=== PATIENT | male | born 1940 | race Caucasian/White ===

== ENCOUNTER 2017-03-19 10:12 | Observation (INO) ==
[2017-03-19 10:45] LABS: Basophils % 0.3 %; Eosinophils % 0.4 %; Hematocrit 33.4 % (37.5-50.1); Hemoglobin 10.5 g/dL (12.9-16.9); Immature Granulocytes % 0.8 % (0-4); Lymphocytes # 0.6 K/mcL (0.6-4.6); Lymphocytes % 8.2 %; Mean Corpuscular HGB Conc 31.4 g/dL (31.6-35.5); Mean Corpuscular Hemoglobin 24.9 pg (28.0-33.3); Mean Corpuscular Volume 79.1 fL (83.0-100.0); Mean Platelet Volume 8.3 fL (9.4-12.4); Monocytes # 0.5 K/mcL (0.0-1.3); Monocytes % 6.5 %; Neutrophils # 6.2 K/mcL (1.6-8.9); Platelet Count 451 K/mcL (140-400); Red Blood Count 4.22 M/mcL (4.19-5.50); Red Cell Distribution Width 19.2 % (11.5-14.5); Segmented Neutrophils % 83.8 %
[2017-03-19 10:58] LABS: INR 1.4; Prothrombin Time 14.9 Seconds (9.4-12.1)
[2017-03-19 11:00] LABS: Alanine Aminotransferase 112 Units/L (0-55); Albumin 2.3 g/dL (3.5-5.0); Albumin/Globulin Ratio 0.5 (1.1-2.2); Alkaline Phosphatase 88 Units/L (38-126); Aspartate Amino Transferase 64 Units/L (5-34); BUN/Creatinine Ratio 23 (6-26); Bilirubin,Total 0.8 mg/dL (0.2-1.2); Blood Urea Nitrogen 20 mg/dL (8-26); Calcium 9.5 mg/dL (8.6-10.8); Carbon Dioxide 23 mEq/L (19-29); Chloride 100 mEq/L (98-109); Globulin 4.8 g/dL (2.4-3.5); Glucose 134 mg/dL (70-99); Osmolality,Calculated 287 (280-300); Sodium 136 mEq/L (136-145); Total Protein 7.1 g/dL (6.0-8.3); eGFR For African Americans > 60 (> 60); eGFR For Non-African Americans > 60 (> 60)
--- NOTE | 2017-03-19 11:00 | Emergency Department Note ---
Disposition Clinical Impression: Near syncope Left lower lobe pneumonia Qualifiers: Pneumonia type: due to unspecified organism Qualified Code(s): J18.1 - Lobar pneumonia, unspecified organism Disposition: Admitted As Inpatient Condition: Fair Referrals: Yael ePrry MD [Primary Care Provider] - Forms: ED Satisfaction Letter Time of Disposition: 11:25 General Adult HPI - General Chief complaint: ED Syncope Stated complaint: medical assist/syncope Time Seen by Provider: 03/19/17 10:27 Source: patient, family Mode of arrival: wheelchair Limitations: no limitations Nursing Notes Reviewed: Yes Vital Signs Reviewed: Yes - History of Present Illness HPI Narrative: 76-year-old male is brought to the emergency department after a medical staff director was called to the outpatient radiology waiting room. According to family and bystanders, the patient was noticed to have just slumped over in his chair and became nearly unresponsive. The patient and family members deny any actual loss of consciousness. Shortly after this happened, the patient did begin to vomit. He was here for a lung biopsy for a left lung mass that he is followed by our application support developer, Dr. Uribe for. He states that he felt fine this morning prior to his arrival here other than some baseline shortness of breath. Sates that he has that with this since November of this year. He does describe a cough that is productive of scant amounts of white sputum. He denies any chest pain, fever, hemoptysis, headache, visual disturbances, abdominal pain, hematuria, hematemesis, melena, or hematochezia. Onset (ago): Just [employer] Pain Scale: 0 Associated symptoms: Reports: cough, nausea/vomiting, shortness of breath Treatments Prior to Arrival: none - Related Data Home Medications Medication Instructions Recorded Confirmed Aspirin 81 mg PO DAILY 12/31/16 03/19/17 Atorvastatin Calcium 80 mg PO DAILY 12/31/16 03/19/17 amLODIPine [Norvasc] 5 mg PO DAILY 12/31/16 03/19/17 Albuterol Sulfate [Albuterol 2 puff IH Q4H PRN 02/04/17 03/19/17 Inhaler] Budesonide/Formoterol 160/4.5 2 puff IH BIDR 03/19/17 03/19/17 [Symbicort 160/4.5] Diltiazem CD (24hr) [Cardizem CD] 120 mg PO DAILY 03/19/17 03/19/17 LORazepam [Ativan] 0.5 mg PO BID 03/19/17 03/19/17 Allergies Allergy/AdvReac Type Severity Reaction Status Date / Time No Known Allergies Allergy Verified 03/19/17 11:34 All systems ED: reviewed and negative except as stated. Constitutional: Denies: fever, chills, weakness, weight change Eyes: Denies: eye pain, eye discharge, vision change ENT ED: Denies: ear pain, throat pain, dental pain, hearing loss, epistaxis, congestion, dysphagia Cardiovascular: Reports: as per HPI, dyspnea on exertion. Denies: chest pain, palpitations, edema, syncope Respiratory: Reports: as per HPI, cough, dyspnea. Denies: wheezes, hemoptysis, stridor Gastrointestinal: Denies: abdominal pain, nausea, vomiting, diarrhea, constipation, hematemesis, melena, hematochezia Genitourinary: Denies: urgency, dysuria, frequency, hematuria Musculoskeletal: Denies: back pain, neck pain, arthralgia, myalgia Integumentary: Denies: rash, abrasion, lesions Neurological: Denies: headache, weakness, numbness, paresthesias, confusion, abnormal gait, vertigo Psychiatric: Denies: anxiety, depression, suicidal thoughts, homicidal thoughts , auditory hallucinations, visual hallucinations Endocrine: Denies: fatigue Hematological/Lymphatic: Denies: easy bleeding, easy bruising Allergic/Immunologic: Denies: facial swelling, urticaria Past Medical History - Past Medical History Attestation: Yes The following information was validated with the patient. Source: patient, nursing notes reviewed Medical history: Reports: other Psychiatric history: Reports: no psych history - Social History Smoking Status: Unknown if ever smoked Alcohol use: Reports: none Drug use: Reports: none Physical Exam - General Limitations: no limitations General appearance: alert - Head Head exam: atraumatic, normocephalic, normal inspection - Eye Eye exam: Present: normal appearance, PERRL, EOMI. Absent: nystagmus - Expanded Eye Exam Pupils: Bilateral: regular, round, reactive, size (3) - ENT ENT exam: mucous membranes moist - Neck Neck exam: Present: normal inspection, full ROM, trachea midline - Chest Chest inspection: Present: normal inspection, symmetric chest wall rise - Respiratory Respiratory exam: Present: normal lung sounds bilaterally. Absent: respiratory distress, stridor, accessory muscle use, prolonged expiratory phase - Cardiovascular Cardiovascular exam: Present: regular rate, normal rhythm, normal heart sounds - Abdominal Exam Abdominal exam: Present: soft, Non-Tender, normal bowel sounds - Extremities Exam Extremities exam: Present: normal inspection, full ROM. Absent: tenderness, pedal edema - Back Exam Back exam: Present: normal inspection, full ROM. Absent: tenderness - Neurological Exam Neurological exam: Present: alert, oriented X3 - Psychiatric Psychiatric exam: Present: normal affect, normal mood - Skin Skin exam: Present: warm, dry, intact, normal color Course Course Narrative: I have discussed this patient's case with Dr. Winters. Dr. Winters has had a face- to-face evaluation with the patient and agrees with hospitalization for further treatment of his left lower lobe pneumonia. The patient denies any recent hospitalizations. We will treat as a community-acquired pneumonia. Cultures have been ordered, fluid resuscitation at 30 mL/kg has been ordered. Time to repeat lactic acid is also pending. 1155: With Dr. Hand of the hospitalist service. He has accepted patient for admission to his service for further treatment of community acquired pneumonia. Vital Signs Temperature 97.7 F 03/19/17 10:13 Pulse Rate 93 03/19/17 10:13 Respiratory Rate 15 03/19/17 10:13 Blood Pressure 102/84 03/19/17 10:13 O2 Sat by Pulse Oximetry 96 03/19/17 10:13 Temperature 97.7 F 03/19/17 10:13 Pulse Rate 78 03/19/17 11:46 Respiratory Rate 24 03/19/17 11:46 Blood Pressure 105/64 03/19/17 11:46 O2 Sat by Pulse Oximetry 98 03/19/17 11:46 Oxygen Delivery Oxygen Delivery Room Air Medical Decision Making - Medical Records Medical records reviewed: Yes I reviewed the patient's medical records. - Lab Data Lab results reviewed: Yes I reviewed the patient's lab results. Lab results narrative: Laboratory Last Values WBC 7.4 K/mcL (4.3-11.1) 03/19/17 10:35 RBC 4.22 M/mcL (4.19-5.50) 03/19/17 10:35 Hgb 10.5 g/dL (12.9-16.9) L 03/19/17 10:35 Hct 33.4 % (37.5-50.1) L 03/19/17 10:35 MCV 79.1 fL (83.0-100.0) L 03/19/17 10:35 MCH 24.9 pg (28.0-33.3) L 03/19/17 10:35 MCHC 31.4 g/dL (31.6-35.5) L 03/19/17 10:35 RDW 19.2 % (11.5-14.5) H 03/19/17 10:35 Plt Count 451 K/mcL (140-400) H 03/19/17 10:35 MPV 8.3 fL (9.4-12.4) L 03/19/17 10:35 Immature Gran % 0.8 % (0-4) 03/19/17 10:35 Seg Neutrophils % 83.8 % 03/19/17 10:35 Lymphocytes % 8.2 % 03/19/17 10:35 Monocytes % 6.5 % 03/19/17 10:35 Eosinophils % 0.4 % 03/19/17 10:35 Basophils % 0.3 % 03/19/17 10:35 Neutrophils # 6.2 K/mcL (1.6-8.9) 03/19/17 10:35 Lymphocytes # 0.6 K/mcL (0.6-4.6) 03/19/17 10:35 Monocytes # 0.5 K/mcL (0.0-1.3) 03/19/17 10:35 Eosinophils # 0.0 K/mcL (0.0-0.6) 03/19/17 10:35 Basophils # 0.0 K/mcL (0.0-0.2) 03/19/17 10:35 PT 14.9 Seconds (9.4-12.1) H 03/19/17 10:35 INR 1.4 03/19/17 10:35 APTT 28.2 Seconds (26.0-36.0) 03/19/17 10:35 Sodium 136 mEq/L (136-145) 03/19/17 10:35 Potassium 4.0 mEq/L (3.5-4.5) 03/19/17 10:35 Chloride 100 mEq/L (98-109) 03/19/17 10:35 Carbon Dioxide 23 mEq/L (19-29) 03/19/17 10:35 BUN 20 mg/dL (8-26) 03/19/17 10:35 Creatinine 0.87 mg/dL (0.72-1.25) 03/19/17 10:35 Est GFR ( Amer) > 60 (> 60) 03/19/17 10:35 Est GFR (Non-Af Amer) > 60 (> 60) 03/19/17 10:35 BUN/Creatinine Ratio 23 (6-26) 03/19/17 10:35 Glucose 134 mg/dL (70-99) H 03/19/17 10:35 POC Glucose 124 (58-89) H 03/19/17 10:56 Calculated Osmolality 287 (280-300) 03/19/17 10:35 Lactic Acid 2.8 mmol/L (0.5-2.2) H 03/19/17 10:46 Calcium 9.5 mg/dL (8.6-10.8) 03/19/17 10:35 Total Bilirubin 0.8 mg/dL (0.2-1.2) 03/19/17 10:35 AST 64 Units/L (5-34) H 03/19/17 10:35 ALT 112 Units/L (0-55) H 03/19/17 10:35 Alkaline Phosphatase 88 Units/L (38-126) 03/19/17 10:35 Ammonia 14 mcmol/L (18-72) L 03/19/17 10:46 Troponin I 0.00 ng/mL (0-0.03) 03/19/17 10:35 Serum Total Protein 7.1 g/dL (6.0-8.3) 03/19/17 10:35 Albumin 2.3 g/dL (3.5-5.0) L 03/19/17 10:35 Globulin 4.8 g/dL (2.4-3.5) H 03/19/17 10:35 Albumin/Globulin Ratio 0.5 (1.1-2.2) L 03/19/17 10:35 Result diagrams: 03/19/17 10:35 03/19/17 10:35 Lab Results 03/19/17 03/19/17 03/19/17 Range/Units 10:35 10:35 10:35 WBC 7.4 (4.3-11.1) K/mcL RBC 4.22 (4.19-5.50) M/mcL Hgb 10.5 L (12.9-16.9) g/dL Hct 33.4 L (37.5-50.1) % MCV 79.1 L (83.0-100.0) fL MCH 24.9 L (28.0-33.3) pg MCHC 31.4 L (31.6-35.5) g/dL RDW 19.2 H (11.5-14.5) % Plt Count 451 H (140-400) K/mcL MPV 8.3 L (9.4-12.4) fL Immature Gran % 0.8 (0-4) % Seg Neutrophils % 83.8 % Lymphocytes % 8.2 % Monocytes % 6.5 % Eosinophils % 0.4 % Basophils % 0.3 % Neutrophils # 6.2 (1.6-8.9) K/mcL Lymphocytes # 0.6 (0.6-4.6) K/mcL Monocytes # 0.5 (0.0-1.3) K/mcL Eosinophils # 0.0 (0.0-0.6) K/mcL Basophils # 0.0 (0.0-0.2) K/mcL PT 14.9 H (9.4-12.1) Seconds INR 1.4 APTT 28.2 (26.0-36.0) Seconds Sodium 136 (136-145) mEq/L Potassium 4.0 (3.5-4.5) mEq/L Chloride 100 (98-109) mEq/L Carbon Dioxide 23 (19-29) mEq/L BUN 20 (8-26) mg/dL Creatinine 0.87 (0.72-1.25) mg/dL Est GFR ( Amer) > 60 (> 60) Est GFR (Non-Af Amer) > 60 (> 60) BUN/Creatinine Ratio 23 (6-26) Glucose 134 H (70-99) mg/dL POC Glucose (58-89) Calculated Osmolality 287 (280-300) Lactic Acid (0.5-2.2) mmol/L Calcium 9.5 (8.6-10.8) mg/dL Total Bilirubin 0.8 (0.2-1.2) mg/dL AST 64 H (5-34) Units/L ALT 112 H (0-55) Units/L Alkaline Phosphatase 88 (38-126) Units/L Ammonia (18-72) mcmol/L Troponin I (0-0.03) ng/mL Serum Total Protein 7.1 (6.0-8.3) g/dL Albumin 2.3 L (3.5-5.0) g/dL Globulin 4.8 H (2.4-3.5) g/dL Albumin/Globulin Ratio 0.5 L (1.1-2.2) Blood Type 03/19/17 03/19/17 03/19/17 Range/Units 10:35 10:46 10:46 WBC (4.3-11.1) K/mcL RBC (4.19-5.50) M/mcL Hgb (12.9-16.9) g/dL Hct (37.5-50.1) % MCV (83.0-100.0) fL MCH (28.0-33.3) pg MCHC (31.6-35.5) g/dL RDW (11.5-14.5) % Plt Count (140-400) K/mcL MPV (9.4-12.4) fL Immature Gran % (0-4) % Seg Neutrophils % % Lymphocytes % % Monocytes % % Eosinophils % % Basophils % % Neutrophils # (1.6-8.9) K/mcL Lymphocytes # (0.6-4.6) K/mcL Monocytes # (0.0-1.3) K/mcL Eosinophils # (0.0-0.6) K/mcL Basophils # (0.0-0.2) K/mcL PT (9.4-12.1) Seconds INR APTT (26.0-36.0) Seconds Sodium (136-145) mEq/L Potassium (3.5-4.5) mEq/L Chloride (98-109) mEq/L Carbon Dioxide (19-29) mEq/L BUN (8-26) mg/dL Creatinine (0.72-1.25) mg/dL Est GFR ( Amer) (> 60) Est GFR (Non-Af Amer) (> 60) BUN/Creatinine Ratio (6-26) Glucose (70-99) mg/dL POC Glucose (58-89) Calculated Osmolality (280-300) Lactic Acid 2.8 H (0.5-2.2) mmol/L Calcium (8.6-10.8) mg/dL Total Bilirubin (0.2-1.2) mg/dL AST (5-34) Units/L ALT (0-55) Units/L Alkaline Phosphatase (38-126) Units/L Ammonia (18-72) mcmol/L Troponin I 0.00 (0-0.03) ng/mL Serum Total Protein (6.0-8.3) g/dL Albumin (3.5-5.0) g/dL Globulin (2.4-3.5) g/dL Albumin/Globulin Ratio (1.1-2.2) Blood Type B POSITIVE 03/19/17 03/19/17 Range/Units 10:46 10:56 WBC (4.3-11.1) K/mcL RBC (4.19-5.50) M/mcL Hgb (12.9-16.9) g/dL Hct (37.5-50.1) % MCV (83.0-100.0) fL MCH (28.0-33.3) pg MCHC (31.6-35.5) g/dL RDW (11.5-14.5) % Plt Count (140-400) K/mcL MPV (9.4-12.4) fL Immature Gran % (0-4) % Seg Neutrophils % % Lymphocytes % % Monocytes % % Eosinophils % % Basophils % % Neutrophils # (1.6-8.9) K/mcL Lymphocytes # (0.6-4.6) K/mcL Monocytes # (0.0-1.3) K/mcL Eosinophils # (0.0-0.6) K/mcL Basophils # (0.0-0.2) K/mcL PT (9.4-12.1) Seconds INR APTT (26.0-36.0) Seconds Sodium (136-145) mEq/L Potassium (3.5-4.5) mEq/L Chloride (98-109) mEq/L Carbon Dioxide (19-29) mEq/L BUN (8-26) mg/dL Creatinine (0.72-1.25) mg/dL Est GFR ( Amer) (> 60) Est GFR (Non-Af Amer) (> 60) BUN/Creatinine Ratio (6-26) Glucose (70-99) mg/dL POC Glucose 124 H (58-89) Calculated Osmolality (280-300) Lactic Acid (0.5-2.2) mmol/L Calcium (8.6-10.8) mg/dL Total Bilirubin (0.2-1.2) mg/dL AST (5-34) Units/L ALT (0-55) Units/L Alkaline Phosphatase (38-126) Units/L Ammonia 14 L (18-72) mcmol/L Troponin I (0-0.03) ng/mL Serum Total Protein (6.0-8.3) g/dL Albumin (3.5-5.0) g/dL Globulin (2.4-3.5) g/dL Albumin/Globulin Ratio (1.1-2.2) Blood Type - Radiology Data Radiology results reviewed: Yes I reviewed the patient's radiology results. Chest X-Ray 03/19/17 10:27 IMPRESSION: Stable left parahilar opacification compatible with known mass. There is possible retrocardiac new left lower lobe airspace disease. D/ / 03/19/2017 11:04:06 Davide Strange MD / manuel Interpreting Provider: Davide Strange MD
[2017-03-19 11:01] LABS: Activated Partial Thrombo Time 28.2 Seconds (26.0-36.0)
[2017-03-19] MEDS ORDERED: Azithromycin 500 MG in D5% in Water 250 ML IVPB ONE (11:24)
--- NOTE | 2017-03-19 11:27 | Emergency Department Note ---
START Narrative - START START: I examined this patient and my medical decision-making was reviewed with the Resident Physician. I agree with the documented findings, disposition and treatment plan as described except to the extent set forth below. 76-year-old male presented to the ER with a syncopal type resuscitation. Patient has known lung mass involving the left lung. Patient was in the outpatient interventional radiology area to get a procedure done which was a biopsy of this mass. He became unresponsive and slumped over in the chair. He had some vomiting associated with this. Workup here reveals a new left lower lobe infiltrate consistent with pneumonia. Lab work is stable. We will start him on Rocephin and Zithromax. Patient will need to be admitted for further cardiac workup as well. ekg shows paced rhythm blood cultures ordered iv fluids timed lactate no critical care time
[2017-03-19] MEDS: 0.9 % Sodium Chloride 1,000 ML IVC SCH ×2 (11:36→20:33)
[2017-03-19] MEDS ORDERED: cefTRIAXone 1,000 MG in Water for inj. (sterile) 10 ML IVP ONE (11:50)
[2017-03-19] MEDS ORDERED: Ondansetron 4 MG/2 ML VIAL IVP ONE (12:30)
[2017-03-19 14:12] LABS: Bilirubin,Urine Negative (Negative); Blood,Urine Negative (Negative); Clarity,Urine Clear (Clear); Color,Urine Yellow (Yellow); Glucose,Urine (UA) Normal (Normal); Ketones,Urine Trace mg/dL (Negative); Leukocyte Esterase,Urine Negative (Negative); Nitrite,Urine Negative (Negative); PH,Urine 7.5 pH Units (5.0-8.0); Protein,Urine 30 mg/dL (Neg-Trace); Urobilinogen,Urine Normal (Normal)
[2017-03-19 14:14] LABS: Bacteria,Urine None Seen per hpf (None-Few); Hyaline Casts,Urine None Seen per lpf (None-Few); RBC,Urine 0-3 per hpf (0-3); Squamous Epithelial Cell,Urine Many per lpf (None-Few); WBC,Urine 0-3 per hpf (0-3)
[2017-03-19] MEDS ORDERED: Naloxone 0.4 MG/ML INJ IVP PRN (15:06)
--- NOTE | 2017-03-19 15:25 | Internal Med History&Physical ---
<Ramakrishna Brewer J - Last Filed: 03/19/17 18:46> Date of Encounter: 03/19/17 Time of Encounter: 15:17 Assessment and Plan (1) Left lower lobe pneumonia Current visit: Yes Status: Acute Left lower lobe pneumonia per chest x-ray. The patient has had no recent hospitalizations. This is likely a community acquired pneumonia. He appears stable and is in no respiratory distress at this time. He is resting comfortably on room air. He does not appear septic however initially lactate was 2.8 Start azithromycin 500 mg daily Start ceftriaxone 1 g daily Blood cultures sent Recheck lactate Continuous telemetry and continuous O2 monitoring CBC and BMP in the morning Qualifiers: Pneumonia type: due to unspecified organism Qualified Code(s): J18.1 - Lobar pneumonia, unspecified organism (2) Near syncope Current visit: Yes Status: Acute Near-syncopal event this afternoon in outpatient radiology for biopsy of lung mass. Reports that he has a history of syncope requiring pacer placement. Has not had a syncopal event in quite some time. Has not had a recent cardiac workup. Orthostatic vitals MRI head/brain without contrast TTE Bilateral carotid ultrasound Continuous telemetry, continues O2 monitoring (3) Nausea & vomiting Current visit: Yes Status: Acute A brief episode of vomiting is afternoon. Reports he is no longer nauseous. Zofran IV push every 8 hours when necessary for n/v Qualifiers: Vomiting type: unspecified Vomiting Intractability: unspecified Qualified Code(s): R11.2 - Nausea with vomiting, unspecified (4) HLD (hyperlipidemia) Current visit: Yes Status: Acute Resume statin Qualifiers: Hyperlipidemia type: unspecified Qualified Code(s): E78.5 - Hyperlipidemia , unspecified; E78.0 - Pure hypercholesterolemia (5) Emphysema Current visit: Yes Status: Acute Stable. Resume albuterol and Symbicort Qualifiers: Qualified Code(s): J43.9 - Emphysema, unspecified (6) DVT prophylaxis Current visit: Yes Status: Acute Heparin 5000 units SC daily Internal Medicine - H&P: HPI Chief complaint: PNA, Near syncope Admitted From: Home Plans for Post Hospital Care: Home History of present illness: Mr. Maravilla is a 76 year old male with a PMH of lymphoma, emphysema, HTN, HLD, syncope requiring a pacer, and a lung mass suspicious for cancer. He presents today to [facility] for a near syncopal event while in the radiology office today for Lt lung mass biopsy. He family and staff noticed that he was slumped over in his chair and difficult to arouse. While attempting to arouse the patient he began vomiting. He reports that he felt fine prior to arrival. He denies any fevers, diarrhea, excess fatigue, dizziness, palpitations, chest pain H/a, abdominal pain, dysuria, hematemesis or hematochezia. He admits to a chronic cough to which he has had since 12/05 with scant white sputum and baseline SOB. CXR reveals a LLL PNA. He is being admitted for further workup and treatment. Past Med Surg Social Fam HX - Past Medical History Medical history: other Psychiatric history: no psych history - Social History Smoking Status: Former smoker Smokeless Tobacco Status: No Alcohol use: none Drug use: none - Family History Sister Race: Family Member Ethnicity: Non- Living Status: Still Living Hx Family Cancer: Yes (unknown) Mother Hx Family Endocrine Disorder: Yes (DM) Brother Living Status: Age at : 27 Cause of : LUNG CANCER Hx Family Cancer: Yes Father Living Status: Hx Family Cancer: Yes Internal Medicine - H&P: Meds Aspirin 81 mg PO DAILY 12/31/16 [History] Atorvastatin Calcium 80 mg PO DAILY 12/31/16 [History] amLODIPine [Norvasc] 5 mg PO DAILY 12/31/16 [History] Albuterol Sulfate [Albuterol Inhaler] 2 puff IH Q4H PRN 02/04/17 [History] Budesonide/Formoterol 160/4.5 [Symbicort 160/4.5] 2 puff IH BIDR 03/19/17 [ History] Diltiazem CD (24hr) [Cardizem CD] 120 mg PO DAILY 03/19/17 [History] LORazepam [Ativan] 0.5 mg PO BID 03/19/17 [History] 3 Allergy/AdvReac Type Severity Reaction Status Date / Time No Known Allergies Allergy Verified 03/19/17 11:34 All Systems PM: A 10-system review of systems was performed and is negative for pertinent findings except as documented above in the HPI. - Constitutional Constitutional: anorexia, chills, night sweats, weight loss, no fatigue, no fever(s) - EENT Eyes: no change in vision, no discharge, no pain, no photophobia Ears: no ear discharge, no ear pain, no tinnitus Nose, mouth and throat: no dysphagia, no nasal discharge, no neck pain, no sore throat - Cardiovascular Cardiovascular ROS IM: dyspnea on exertion (baseline), syncope (near syncopal event today; h/o syncope requiring pacer), no chest pain, no diaphoresis, no dyspnea, no edema, no lightheadedness, no palpitations - Respiratory Respiratory: cough (chronic), dyspnea on exertion, no dyspnea, no hemoptysis, no wheezing, no pain on inspiration, no chest congestion, no excessive phlegm production, no change in phlegm color, no pain with cough - Gastrointestinal Gastrointestinal: nausea (N/V this afternoon; has subsided since), vomiting, no abdominal pain, no diarrhea, no hematemesis, no hematochezia, no melena - Genitourinary Genitourinary ROS male: no dysuria, no flank pain, no urinary frequency, no urinary urgency - Musculoskeletal Musculoskeletal ROS IM: no numbness, no tingling - Integumentary Integumentary IM: no rash, no unusual bruising - Neurological Neurological ROS: no confusion, no convulsions, no dizziness, no focal weakness , no headache(s), no numbness, no tingling, no tremor(s) - Hematologic/Lymphatic Hematologic/Lymphatic: no easy bruising - Constitutional Vitals: Temp Pulse Resp BP Pulse Ox 97.4 F L 81 14 117/76 91 03/19/17 14:12 03/19/17 14:12 03/19/17 14:12 03/19/17 14:12 03/19/17 14:12 - Head Head exam: Present: atraumatic, normocephalic - Eye Eye exam: Present: PERRL, conjuntiva pink, sclera anicteric Pupils: Present: PERRL - Neck Neck exam general surgery: Present: supple, trachea midline. Absent: lymphadenopathy - Respiratory Respiratory exam: Present: CTAB. Absent: accessory muscle use, rales, rhonchi, wheezes - Cardiovascular Cardiovascular exam: Present: RRR, +S1, +S2. Absent: bradycardia, diastolic murmur, gallop, irregular rhythm, JVD, rubs, systolic murmur, tachycardia - GI/Abdominal GI/Abdominal exam: Present: normal bowel sounds, soft, no peritoneal signs. Absent: distended, tenderness - Extremities Exam Extremities exam: Present: normal capillary refill, warm, radial pulses palpable and symmetrical. Absent: calf tenderness, cyanotic, pedal edema - Neurological Exam Neurological exam: Present: alert, CN II-XII intact, oriented X3, no focal deficits, strengths equal and symetr throughout. Absent: pronater drift, facial droop, speech deficit - Skin Skin exam: Present: dry, intact Internal Med - H&P Results - Labs CBC & Chem 7: 03/19/17 10:35 03/19/17 10:35 Labs: Urine 03/19/17 Range/Units 13:53 Urine Color Yellow (Yellow) Urine Clarity Clear (Clear) Urine pH 7.5 (5.0-8.0) pH Units Ur Specific [place] 1.020 (1.010-1.025) Urine Protein 30 H (Neg-Trace) mg/dL Urine Glucose (UA) Normal (Normal) mg/dL - Diagnostic Studies Chest x-ray Status: image reviewed by me Additional comments: Stable left perihilar opacification compatible with known mass New left lower lobe airspace disease likely representing pneumonia CT scan - head Status: image reviewed by me Additional comments: No acute intracranial abnormalities <Randolph Hand - Last Filed: 03/20/17 15:52> Date of Encounter: 03/20/17 Internal Medicine - H&P: HPI History of present illness: Mr. Maravilla is a 76 year old male All Systems PM: A 10-system review of systems was performed and is negative for pertinent findings except as documented above in the HPI. - Constitutional Vitals: Temp Pulse Resp BP Pulse Ox 98.0 F 87 14 107/61 96 03/20/17 10:19 03/20/17 10:19 03/20/17 10:19 03/20/17 10:19 03/20/17 10:19 Internal Med - H&P Results - Labs CBC & Chem 7: 03/20/17 05:41 03/20/17 05:41 Labs: Short CBC 03/20/17 Range/Units 05:41 WBC 6.1 (4.3-11.1) K/mcL Hgb 8.6 L D (12.9-16.9) g/dL Hct 28.7 L (37.5-50.1) % Plt Count 386 (140-400) K/mcL Neutrophils # 5.2 (1.6-8.9) K/mcL BMP 03/20/17 05:41 Sodium 137 Potassium 4.2 Chloride 104 Carbon Dioxide 24 BUN 13 Creatinine 0.77 Glucose 101 H Calcium 8.3 L Cardiac Enzymes 03/19/17 03/19/17 Range/Units 15:54 22:02 Troponin I 0.00 0.00 (0-0.03) ng/mL - Impressions ITS Impressions Chest CT 03/20/17 10:30 IMPRESSION: Extensive bulky mediastinal and bilateral hilar lymphadenopathy measuring up to 4.5 cm in size. Differential includes metastatic lymphadenopathy given the large appearance and narrowing of the bronchi centrally. Enlarging consolidative mass in the left lower lobe now measuring 6.4 x 4.8 cm previously measuring 5.3 x 4.2 cm in size. Worsening left lower lobe airspace consolidation. Differential includes a left lower lobe pneumonia and/or a primary bronchogenic left lower lobe malignancy with secondary postobstructive pneumonia. New ground-glass nodules in the subpleural region of the right lower lobe measuring 9 to 10 mm in size suggesting multifocal pneumonia development. Moderate left and small right pleural effusions new since the prior exam. No pulmonary edema. Upper abdominal lymphadenopathy in the gastrohepatic and central mesenteric region suggesting metastatic lymphadenopathy. Recommend CT scan of the abdomen pelvis with contrast for further evaluation of abdominal/pelvic metastatic disease/lymphadenopathy. Hypoattenuating small foci within the liver likely representing hepatic cysts but given the additional findings, neoplastic disease cannot be completely excluded. Further evaluation with hepatic MRI should be considered. D/ / 03/20/2017 12:14:16 Osbaldo Martinez MD / ida Interpreting Provider: Osbaldo Martinez MD Echocardiogram 03/20/17 15:12 Impressions: LVEF 55%. Normal LV chamber size, wall thickness and function. Atypical septal motion consistent with paced rhythm. Mild left ventricular diastolic dysfunction. Normal right ventricular structure and function. Mild pulmonary hypertension. Estimated RVSP is 40 mmHg. A device lead was visualized in the right atrium and right ventricle. No significant valvular dysfunction. Left Ventricular Wall Motion: Rest Echo Findings All wall segments showed normal motion. Findings: Study Quality * Technically adequate exam. ECG Findings * Paced rhythm. Left Ventricle * LVEF 55%. * Normal LV chamber size, wall thickness and function. * Atypical septal motion consistent with paced rhythm. * Mild left ventricular diastolic dysfunction. Right Ventricle * Normal right ventricular structure and function. Left Atrium * Mildly dilated left atrium. Right Atrium * Mildly dilated right atrium. Interatrial Septum * Interatrial septum not well evaluated. Aortic Valve * Trileaflet aortic valve with normal function. * No aortic regurgitation. * No aortic stenosis. Mitral Valve * Mild mitral annular calcification * No mitral stenosis. * No mitral regurgitation. Tricuspid Valve * Normal tricuspid valve structure and function. * Trace tricuspid regurgitation. * Mild pulmonary hypertension. * Estimated RVSP is 40 mmHg. * Estimated RA pressure is 5 mmHg. Pulmonic Valve * Pulmonic valve is not well visualized. * No pulmonic regurgitation. Aorta * Normally sized aortic root. Pericardium * The pericardium appears normal. IVC * Normal IVC dimensions and inspiratory collapse. Device lead * A device lead was visualized in the right atrium and right ventricle. Pulmonary Artery * Normal visualized portions of the main pulmonary artery. - Attending Attestation I examined this patient and my medical decision-making was reviewed with the Resident Physician/FINANCIAL COACH. I agree with the documented findings, disposition and treatment plan as described except to the extent set forth below. case seen and examined chart reviewed Agree with FINANCIAL COACH Brewer assessment and plan
[2017-03-19] MEDS ORDERED: Ondansetron 4 MG/2 ML VIAL IVP PRN (15:29)
[2017-03-19] MEDS: *HR* Heparin 5,000 UNIT/ML VIAL SQ SCH (17:56)
[2017-03-19] MEDS: Budesonide/Formoterol 160/4.5 MDI IH SCH (20:05)
[2017-03-19] MEDS: *HR* LORazepam 0.5 MG TABLET PO SCH (20:34)
[2017-03-20] MEDS: *HR* Heparin 5,000 UNIT/ML VIAL SQ SCH ×2 (05:41→18:14)
[2017-03-20 06:25] LABS: BUN/Creatinine Ratio 17 (6-26); Blood Urea Nitrogen 13 mg/dL (8-26); Calcium 8.3 mg/dL (8.6-10.8); Carbon Dioxide 24 mEq/L (19-29); Chloride 104 mEq/L (98-109); Glucose 101 mg/dL (70-99); Osmolality,Calculated 284 (280-300); Potassium 4.2 mEq/L (3.5-4.5); Sodium 137 mEq/L (136-145); eGFR For African Americans > 60 (> 60); eGFR For Non-African Americans > 60 (> 60)
[2017-03-20 06:31] LABS: Basophils % 0.3 %; Eosinophils # 0.1 K/mcL (0.0-0.6); Eosinophils % 1.3 %; Hematocrit 28.7 % (37.5-50.1); Lymphocytes # 0.3 K/mcL (0.6-4.6); Lymphocytes % 4.7 %; Mean Corpuscular Hemoglobin 24.5 pg (28.0-33.3); Mean Corpuscular Volume 81.8 fL (83.0-100.0); Mean Platelet Volume 8.6 fL (9.4-12.4); Monocytes # 0.5 K/mcL (0.0-1.3); Monocytes % 7.5 %; Neutrophils # 5.2 K/mcL (1.6-8.9); Platelet Count 386 K/mcL (140-400); Red Blood Count 3.51 M/mcL (4.19-5.50); Red Cell Distribution Width 19.3 % (11.5-14.5); Segmented Neutrophils % 85.2 %
[2017-03-20 06:34] LABS: Hemoglobin 8.6 g/dL (12.9-16.9)
--- NOTE | 2017-03-20 07:16 | Electrocardiograph Report ---
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
[2017-03-20] MEDS: Budesonide/Formoterol 160/4.5 MDI IH SCH ×2 (08:05→20:16)
[2017-03-20] MEDS ORDERED: amLODIPine 5 MG TABLET PO SCH (09:00)
[2017-03-20] MEDS ORDERED: Diltiazem CD (24hr) 120 MG CAPSULE PO SCH (09:00)
--- NOTE | 2017-03-20 09:35 | Internal Med Progress Note ---
Date of Encounter: 03/20/17 Time of Encounter: 09:33 - Assessment and plan (1) Lung mass Current Visit: Yes Status: Acute Assessment and plan: will reconsult Ir for biopsy notified (2) Left lower lobe pneumonia Current Visit: Yes Status: Acute Assessment and plan: Community acquired pneumonia patient started on antibiotic Rocephin and Zithromax Qualifiers: Pneumonia type: due to unspecified organism Qualified Code(s): J18.1 - Lobar pneumonia, unspecified organism (3) Near syncope Current Visit: Yes Status: Acute Assessment and plan: Syncope most likely vasodepressor syncope patient has underlying pacemaker which is sensitive and Probably (4) HLD (hyperlipidemia) Current Visit: Yes Status: Chronic Assessment and plan: Chronic we will resume home medication Qualifiers: Hyperlipidemia type: pure hypercholesterolemia Qualified Code(s): E78.00 - Pure hypercholesterolemia, unspecified; E78.0 - Pure hypercholesterolemia (5) Emphysema Current Visit: Yes Status: Acute Assessment and plan: Chronic COPD no active wheezing at this point Qualifiers: Emphysema type: unspecified Qualified Code(s): J43.9 - Emphysema, unspecified (6) Nausea & vomiting Current Visit: Yes Status: Acute Assessment and plan: Resolved Qualifiers: Vomiting type: unspecified Vomiting Intractability: unspecified Qualified Code(s): R11.2 - Nausea with vomiting, unspecified (7) Artificial pacemaker Current Visit: Yes Status: Chronic Assessment and plan: Sensing and capture and probably - Subjective Interval history: Patient with history of COPD, pacemaker, anemia, patient diagnosed with a lung mass and was sent to radiology for a lung biopsy . while in the waiting room patient slumped over and was taken to the emergency room. Emergency room evaluation patient was diagnosed with pneumonia left lower lobe pneumonia and then admitted for workup of syncope and also follow up evaluation. Patient blood pressure on low normal today he is awake feeling back to normal no chest pain no shortness of breath - Constitutional Vitals: Temp Pulse Resp BP Pulse Ox 98.2 F 73 14 97/50 92 03/20/17 06:54 03/20/17 06:54 03/20/17 06:54 03/20/17 06:54 03/20/17 06:54 General appearance: Present: cachectic, underweight - Eye Eye exam: Present: PERRL, conjuntiva pink, sclera anicteric Pupils: Present: PERRL - Neck Neck exam general surgery: Present: supple, trachea midline. Absent: lymphadenopathy - Respiratory Respiratory exam: Present: decreased breath sounds, rhonchi, wheezes - Cardiovascular Cardiovascular exam: Present: RRR, +S1, +S2. Absent: diastolic murmur, gallop, rubs, systolic murmur - GI/Abdominal GI/Abdominal exam: Present: normal bowel sounds, soft, no peritoneal signs. Absent: distended, tenderness - Extremities Exam Extremities exam: Present: warm, radial pulses palpable and symmetrical. Absent : calf tenderness, cyanotic, pedal edema Internal Medicine: Result - Labs CBC & Chem 7: 03/20/17 05:41 03/20/17 05:41 Labs: Short CBC 03/20/17 Range/Units 05:41 WBC 6.1 (4.3-11.1) K/mcL Hgb 8.6 L D (12.9-16.9) g/dL Hct 28.7 L (37.5-50.1) % Plt Count 386 (140-400) K/mcL Neutrophils # 5.2 (1.6-8.9) K/mcL BMP 03/20/17 05:41 Sodium 137 Potassium 4.2 Chloride 104 Carbon Dioxide 24 BUN 13 Creatinine 0.77 Glucose 101 H Calcium 8.3 L Cardiac Enzymes 03/19/17 03/19/17 Range/Units 15:54 22:02 Troponin I 0.00 0.00 (0-0.03) ng/mL Urine 03/19/17 Range/Units 13:53 Urine Color Yellow (Yellow) Urine Clarity Clear (Clear) Urine pH 7.5 (5.0-8.0) pH Units Ur Specific [place] 1.020 (1.010-1.025) Urine Protein 30 H (Neg-Trace) mg/dL Urine Glucose (UA) Normal (Normal) mg/dL - ABG Interpretation ABG results: PT/INR, D-dimer PT 14.9 Seconds (9.4-12.1) H 03/19/17 10:35 Consult Discharge Plan - Plan Referrals: Yael Perry MD [Primary Care Provider] -
[2017-03-20] MEDS: Aspirin 81 MG TAB.CHEW PO SCH (10:32)
[2017-03-20] MEDS: *HR* LORazepam 0.5 MG TABLET PO SCH ×2 (10:39→20:26)
[2017-03-20] MEDS: Azithromycin 500 MG in D5% in Water 250 ML IVPB SCH (10:39)
[2017-03-20] MEDS: cefTRIAXone 1,000 MG in Water for inj. (sterile) 10 ML IVP SCH (10:40)
[2017-03-20] MEDS: 0.9 % Sodium Chloride 1,000 ML IVC SCH (10:40)
[2017-03-21] MEDS: 0.9 % Sodium Chloride 1,000 ML IVC SCH ×2 (00:04→16:14)
[2017-03-21 04:32] LABS: Hematocrit 29.5 % (37.5-50.1); Hemoglobin 8.9 g/dL (12.9-16.9); Mean Corpuscular HGB Conc 30.2 g/dL (31.6-35.5); Mean Corpuscular Hemoglobin 24.5 pg (28.0-33.3); Mean Platelet Volume 8.3 fL (9.4-12.4); Platelet Count 349 K/mcL (140-400); Red Blood Count 3.64 M/mcL (4.19-5.50); Red Cell Distribution Width 19.1 % (11.5-14.5)
[2017-03-21 04:40] LABS: BUN/Creatinine Ratio 14 (6-26); Blood Urea Nitrogen 11 mg/dL (8-26); Calcium 8.2 mg/dL (8.6-10.8); Carbon Dioxide 24 mEq/L (19-29); Chloride 103 mEq/L (98-109); Glucose 116 mg/dL (70-99); Osmolality,Calculated 280 (280-300); Potassium 4.1 mEq/L (3.5-4.5); Sodium 135 mEq/L (136-145); eGFR For African Americans > 60 (> 60); eGFR For Non-African Americans > 60 (> 60)
[2017-03-21] MEDS: *HR* Heparin 5,000 UNIT/ML VIAL SQ SCH ×2 (05:56→18:43)
[2017-03-21] MEDS: Azithromycin 500 MG in D5% in Water 250 ML IVPB SCH (10:34)
[2017-03-21] MEDS: cefTRIAXone 1,000 MG in Water for inj. (sterile) 10 ML IVP SCH (10:35)
[2017-03-21] MEDS: Aspirin 81 MG TAB.CHEW PO SCH (10:36)
[2017-03-21] MEDS: *HR* LORazepam 0.5 MG TABLET PO SCH ×2 (10:36→21:03)
[2017-03-21] MEDS: Budesonide/Formoterol 160/4.5 MDI IH SCH ×2 (11:27→20:39)
--- NOTE | 2017-03-21 12:52 | IR Progress Note ---
Vital Signs: Vital Signs/O2 Sat, Most Current Temp Pulse Resp BP Pulse Ox 98.2 F 91 16 102/64 92 03/21/17 11:10 03/21/17 11:10 03/21/17 11:10 03/21/17 11:10 03/21/17 11:10 Recent Labs: Lab Results 03/21/17 03/21/17 03/20/17 04:16 04:16 05:41 WBC 6.7 RBC 3.64 L Hgb 8.9 L Hct 29.5 L MCV 81.0 L MCH 24.5 L MCHC 30.2 L RDW 19.1 H Plt Count 349 MPV 8.3 L Neutrophils # Lymphocytes # Monocytes # Eosinophils # Basophils # Sodium 135 L 137 Potassium 4.1 4.2 Chloride 103 104 Carbon Dioxide 24 24 BUN 11 13 Creatinine 0.78 0.77 Est GFR ( Amer) > 60 > 60 Est GFR (Non-Af Amer) > 60 > 60 BUN/Creatinine Ratio 14 17 Glucose 116 H 101 H Lactic Acid Calcium 8.2 L 8.3 L 03/20/17 03/19/17 05:41 14:50 WBC 6.1 RBC 3.51 L Hgb 8.6 L D Hct 28.7 L MCV 81.8 L MCH 24.5 L MCHC 30.0 L RDW 19.3 H Plt Count 386 MPV 8.6 L Neutrophils # 5.2 Lymphocytes # 0.3 L Monocytes # 0.5 Eosinophils # 0.1 Basophils # 0.0 Sodium Potassium Chloride Carbon Dioxide BUN Creatinine Est GFR ( Amer) Est GFR (Non-Af Amer) BUN/Creatinine Ratio Glucose Lactic Acid 1.0 Calcium Assessment and Plan Referred for biopsy left lung mass. CT scan shows consolidation left lower lobe. Most of this likely represents post obstructive atelectasis. Spoke with Dr De Jesus and plan is to CT abdomen and pelvis. If there are large peritoneal lymph nodes then can biopsy the nodes. If not, then plan is to do left thoracentesis and reattempt bronchoscopy targeting the large mediastinal or hilar nodes versus central left hilar mass.
--- NOTE | 2017-03-21 12:53 | IR Procedure Note ---
Date of procedure: 03/21/17 Consent Obtained: Written consent Timeout: Correct patient and procedure verified, Correct site verified, Time out performed, Skin prep completed Local anesthetic: Lidocaine 1% Indications: Left lung mass with pleural effusion Procedure Performed: Left thoracentesis Results/Findings: Sample to path Complications: None; Tolerated procedure well (Monitor on floor)
[2017-03-21 14:39] LABS: Source of Body Fluid left plueral fluid
[2017-03-21 15:59] LABS: Appearance of Body Fluid Slightly Hazy (Clear); Volume of Body Fluid 550 mL
--- NOTE | 2017-03-21 18:53 | Internal Med Progress Note ---
Date of Encounter: 03/21/17 Time of Encounter: 18:51 - Assessment and plan (1) Lung mass Current Visit: Yes Status: Acute Assessment and plan: Patient has a lung mass. Outpatient couple of attempts with a bronchoscopy to get the biopsy. Scheduled for another IR guided biopsy yesterday at that time patient had a syncopal episode. Patient is scheduled for inpatient interventional radiology guided biopsy/chest tube insertion. Plan: We will get pulmonology on the board tomorrow (2) Left lower lobe pneumonia Current Visit: Yes Status: Acute Assessment and plan: Community acquired pneumonia patient started on antibiotic Rocephin and Zithromax Qualifiers: Pneumonia type: due to unspecified organism Qualified Code(s): J18.1 - Lobar pneumonia, unspecified organism (3) HLD (hyperlipidemia) Current Visit: Yes Status: Chronic Assessment and plan: Chronic we will resume home medication Qualifiers: Hyperlipidemia type: pure hypercholesterolemia Qualified Code(s): E78.00 - Pure hypercholesterolemia, unspecified; E78.0 - Pure hypercholesterolemia (4) DVT prophylaxis Current Visit: Yes Status: Acute Assessment and plan: Continue same - Subjective Interval history: Patient seen and examined. Chart reviewed. patient is comfortably lying in the bed. Patient is scheduled for higher guided biopsy. - Constitutional Vitals: Temp Pulse Resp BP Pulse Ox 97.6 F 104 14 117/68 94 03/21/17 18:49 03/21/17 18:49 03/21/17 18:49 03/21/17 18:49 03/21/17 18:49 General appearance: Present: cachectic, A&O X 3, no acute distress, underweight , answers questions appropriately - Head Head exam: Present: atraumatic, normocephalic - Eye Eye exam: Present: PERRL, conjuntiva pink, sclera anicteric Pupils: Present: PERRL - Neck Neck exam general surgery: Present: supple, trachea midline. Absent: lymphadenopathy - Respiratory Respiratory exam: Present: CTAB. Absent: accessory muscle use, rales, rhonchi, wheezes - Cardiovascular Cardiovascular exam: Present: RRR, +S1, +S2. Absent: diastolic murmur, gallop, rubs, systolic murmur - GI/Abdominal GI/Abdominal exam: Present: normal bowel sounds, soft, no peritoneal signs. Absent: distended, tenderness - Extremities Exam Extremities exam: Present: warm, radial pulses palpable and symmetrical. Absent : calf tenderness, cyanotic, pedal edema - Neurological Exam Neurological exam: Present: CN II-XII intact, oriented X3, no focal deficits. Absent: pronater drift, facial droop, speech deficit - Skin Skin exam: Present: dry, intact Internal Medicine: Result - Labs CBC & Chem 7: 03/21/17 04:16 03/21/17 04:16 Labs: Short CBC 03/21/17 Range/Units 04:16 WBC 6.7 (4.3-11.1) K/mcL Hgb 8.9 L (12.9-16.9) g/dL Hct 29.5 L (37.5-50.1) % Plt Count 349 (140-400) K/mcL BMP 03/21/17 04:16 Sodium 135 L Potassium 4.1 Chloride 103 Carbon Dioxide 24 BUN 11 Creatinine 0.78 Glucose 116 H Calcium 8.2 L - ABG Interpretation ABG results: PT/INR, D-dimer PT 14.9 Seconds (9.4-12.1) H 03/19/17 10:35 - Impressions Impressions Abdomen/Pelvis CT 03/21/17 00:00 IMPRESSION: 1. Redemonstration of several indeterminate hepatic lesions, the largest at 1.3 cm on the right. Given the findings concerning for a primary lung neoplasm in the left lower lobe, metastatic disease is not excluded. Consider MRI follow-up as outlined previously. 2. Redemonstration of retroperitoneal and gastrohepatic adenopathy as well as adenopathy in the left anterior costophrenic sulcus, also concerning for metastatic disease. 3. No additional evidence of abdominal or pelvic metastatic disease. 4. Colonic diverticulosis with no acute features. 5. Fusiform infrarenal abdominal aortic aneurysm at 3.1 cm maximally. Follow-up recommendations below. RECOMMENDATIONS: Managing Abdominal Aortic Aneurysms 3.0-3.4 cm: Every 3 years. *For abdominal aortas with maximum diameter of 2.6-2.9 cm meeting criteria for AAA (>50% of proximal normal segment). Reference: J Vasc Surg. 2008;50(4 Suppl):S2-49 D/ /21/2017 14:11:06 Spike Mancuso MD / [email or web address] Interpreting Provider: Spike Mancuso MD Thoracentesis 03/21/17 00:00 IMPRESSION: 1. CT guided left thoracentesis as discussed above. D/ / Vahid Wan MD / Vahid Wan MD Interpreting Provider: Vahid Wan MD Consult Discharge Plan - Plan Referrals: Yael Perry MD [Primary Care Provider] -
[2017-03-22] MEDS: 0.9 % Sodium Chloride 1,000 ML IVC SCH ×3 (05:47→21:29)
[2017-03-22] MEDS: *HR* Heparin 5,000 UNIT/ML VIAL SQ SCH ×2 (05:48→18:02)
[2017-03-22 06:41] LABS: Basophils % 0.3 %; Eosinophils # 0.1 K/mcL (0.0-0.6); Eosinophils % 0.7 %; Hematocrit 30.3 % (37.5-50.1); Hemoglobin 9.1 g/dL (12.9-16.9); Immature Granulocytes % 0.9 % (0-4); Lymphocytes # 0.4 K/mcL (0.6-4.6); Lymphocytes % 5.6 %; Mean Corpuscular Hemoglobin 24.2 pg (28.0-33.3); Mean Corpuscular Volume 80.6 fL (83.0-100.0); Mean Platelet Volume 8.6 fL (9.4-12.4); Monocytes # 0.6 K/mcL (0.0-1.3); Monocytes % 7.8 %; Neutrophils # 6.4 K/mcL (1.6-8.9); Platelet Count 419 K/mcL (140-400); Red Blood Count 3.76 M/mcL (4.19-5.50); Red Cell Distribution Width 19.2 % (11.5-14.5); Segmented Neutrophils % 84.7 %
[2017-03-22 06:53] LABS: Alanine Aminotransferase 118 Units/L (0-55); Albumin 1.8 g/dL (3.5-5.0); Albumin/Globulin Ratio 0.4 (1.1-2.2); Alkaline Phosphatase 72 Units/L (38-126); Aspartate Amino Transferase 67 Units/L (5-34); BUN/Creatinine Ratio 14 (6-26); Bilirubin,Total 0.5 mg/dL (0.2-1.2); Blood Urea Nitrogen 11 mg/dL (8-26); Calcium 8.3 mg/dL (8.6-10.8); Carbon Dioxide 22 mEq/L (19-29); Chloride 102 mEq/L (98-109); Globulin 4.2 g/dL (2.4-3.5); Glucose 133 mg/dL (70-99); Osmolality,Calculated 281 (280-300); Potassium 4.1 mEq/L (3.5-4.5); Sodium 135 mEq/L (136-145); eGFR For African Americans > 60 (> 60); eGFR For Non-African Americans > 60 (> 60)
[2017-03-22] MEDS: cefTRIAXone 1,000 MG in Water for inj. (sterile) 10 ML IVP SCH (08:31)
[2017-03-22] MEDS: Azithromycin 500 MG in D5% in Water 250 ML IVPB SCH (08:32)
[2017-03-22] MEDS: *HR* LORazepam 0.5 MG TABLET PO SCH ×2 (08:33→21:28)
[2017-03-22] MEDS: Aspirin 81 MG TAB.CHEW PO SCH (08:33)
[2017-03-22] MEDS: Budesonide/Formoterol 160/4.5 MDI IH SCH ×2 (09:34→22:10)
--- NOTE | 2017-03-22 14:48 | Internal Med Progress Note ---
Date of Encounter: 03/22/17 Time of Encounter: 14:46 - Assessment and plan (1) Lung mass Current Visit: Yes Status: Acute Assessment and plan: Patient has a lung mass. Outpatient couple of attempts with a bronchoscopy to get the biopsy. Scheduled for another IR guided biopsy yesterday at that time patient had a syncopal episode. Patient is scheduled for inpatient interventional radiology guided biopsy/chest tube insertion. Plan: We will get pulmonology on the board tomorrow 03/22/2017 Patient did not get a chest tube. Patient got thoracentesis. This thoracentesis was from the left side of the chest. Upon minimal exertion patient becomes tachycardic. Patient is presently on antibiotics. We will continue with antibiotics for today and then we will monitor him very closely. Spoke with pulmonology and updated plan (2) Left lower lobe pneumonia Current Visit: Yes Status: Acute Assessment and plan: Community acquired pneumonia patient started on antibiotic Rocephin and Zithromax Qualifiers: Pneumonia type: due to unspecified organism Qualified Code(s): J18.1 - Lobar pneumonia, unspecified organism (3) HLD (hyperlipidemia) Current Visit: Yes Status: Chronic Assessment and plan: Chronic we will resume home medication Qualifiers: Hyperlipidemia type: pure hypercholesterolemia Qualified Code(s): E78.00 - Pure hypercholesterolemia, unspecified; E78.0 - Pure hypercholesterolemia (4) DVT prophylaxis Current Visit: Yes Status: Acute Assessment and plan: Continue same - Subjective Interval history: Patient seen and examined. Chart reviewed. patient is comfortably lying in the bed. Patient is scheduled for higher guided biopsy. 03/22/2017 Patient seen and examined. Chart reviewed. Patient is keen to go home. But his saturation is between 94 and 96% on room air. She is tachycardic to 110-140 per beat. Plan: Spoke with pulmonology. Possible discharge tomorrow and outpatient follow-up on Patient is too weak to get this done. We will continue to observe him. - Constitutional Vitals: Temp Pulse Resp BP Pulse Ox 97.5 F L 99 18 106/69 96 03/22/17 10:57 03/22/17 10:57 03/22/17 10:57 03/22/17 10:57 03/22/17 10:57 General appearance: Present: cachectic, A&O X 3, no acute distress, underweight , answers questions appropriately - Head Head exam: Present: atraumatic, normocephalic - Eye Eye exam: Present: PERRL, conjuntiva pink, sclera anicteric Pupils: Present: PERRL - Neck Neck exam general surgery: Present: supple, trachea midline. Absent: lymphadenopathy - Respiratory Respiratory exam: Present: CTAB. Absent: accessory muscle use, rales, rhonchi, wheezes - Cardiovascular Cardiovascular exam: Present: RRR, +S1, +S2. Absent: diastolic murmur, gallop, rubs, systolic murmur - GI/Abdominal GI/Abdominal exam: Present: normal bowel sounds, soft, no peritoneal signs. Absent: distended, tenderness - Extremities Exam Extremities exam: Present: warm, radial pulses palpable and symmetrical. Absent : calf tenderness, cyanotic, pedal edema - Neurological Exam Neurological exam: Present: CN II-XII intact, oriented X3, no focal deficits. Absent: pronater drift, facial droop, speech deficit - Skin Skin exam: Present: dry, intact Internal Medicine: Result - Labs CBC & Chem 7: 03/22/17 06:13 03/22/17 06:13 Labs: Short CBC 03/22/17 Range/Units 06:13 WBC 7.5 (4.3-11.1) K/mcL Hgb 9.1 L (12.9-16.9) g/dL Hct 30.3 L (37.5-50.1) % Plt Count 419 H (140-400) K/mcL Neutrophils # 6.4 (1.6-8.9) K/mcL BMP 03/22/17 06:13 Sodium 135 L Potassium 4.1 Chloride 102 Carbon Dioxide 22 BUN 11 Creatinine 0.79 Glucose 133 H Calcium 8.3 L Liver Function 03/22/17 Range/Units 06:13 Total Bilirubin 0.5 (0.2-1.2) mg/dL AST 67 H (5-34) Units/L ALT 118 H (0-55) Units/L Alkaline Phosphatase 72 (38-126) Units/L Albumin 1.8 L D (3.5-5.0) g/dL - ABG Interpretation ABG results: PT/INR, D-dimer PT 14.9 Seconds (9.4-12.1) H 03/19/17 10:35 - Impressions Impressions Abdomen/Pelvis CT 03/21/17 00:00 IMPRESSION: 1. Redemonstration of several indeterminate hepatic lesions, the largest at 1.3 cm on the right. Given the findings concerning for a primary lung neoplasm in the left lower lobe, metastatic disease is not excluded. Consider MRI follow-up as outlined previously. 2. Redemonstration of retroperitoneal and gastrohepatic adenopathy as well as adenopathy in the left anterior costophrenic sulcus, also concerning for metastatic disease. 3. No additional evidence of abdominal or pelvic metastatic disease. 4. Colonic diverticulosis with no acute features. 5. Fusiform infrarenal abdominal aortic aneurysm at 3.1 cm maximally. Follow-up recommendations below. RECOMMENDATIONS: Managing Abdominal Aortic Aneurysms 3.0-3.4 cm: Every 3 years. *For abdominal aortas with maximum diameter of 2.6-2.9 cm meeting criteria for AAA (>50% of proximal normal segment). Reference: J Vasc Surg. 2008;50(4 Suppl):S2-49 D/ / 03/21/2017 14:11:06 Spike Mancuso MD / [email or web address] Interpreting Provider: Spike Mancuso MD Thoracentesis 03/21/17 00:00 IMPRESSION: 1. CT guided left thoracentesis as discussed above. D/ / Vahid Wan MD / Vahid Wan MD Interpreting Provider: Vahid Wan MD Consult Discharge Plan - Plan Referrals: Yael Perry MD [Primary Care Provider] -
--- NOTE | 2017-03-22 19:54 | Pulmonology Consult Note ---
Date of Encounter: 03/22/17 Time of Encounter: 14:00 Assessment and Plan (1) Lung mass Current Visit: Yes Status: Acute Left lower lobe mass which is increasing in Size most likely due to primary bronchogenic malignancy , Spoke with patient is already on the list for EBUS , patient can be discharged for the outpatient procedure . Please walk him to see exercise tolerance before sending him home . Patient says he is back to baseline (2) Left lower lobe pneumonia Current Visit: Yes Status: Acute Patient pneumonia in the imaging most likely due to post obstructive pneumonia agree with IV antibiotics and bronchodilators . While sending him home on 7 days of Doxycycline , will start him on short burst of steroids Prednisone 40 mg PO for 5 days . To test his exercise tolerance for ADL'S . Thank you very much for your consultation. Qualifiers: Pneumonia type: due to unspecified organism Qualified Code(s): J18.1 - Lobar pneumonia, unspecified organism History of Present Illness Consult date: 03/22/17 Requesting physician: Randolph Hand Reason for consult: lung mass Chief complaint: Lung mass consolidative opacity History of present illness: 76 year old male presented to the hospital for CT guided biopsy of Left lower lobe mass highly suspicious for primary bronchogenic malignancy while he was in the IR suite he had a near syncopal episode the procedure was aborted was admitted to the hospital for further work up the syncopal work up was negative . CT chest showed increase in size of left lower lobe lesion with some post obstructive pneumonia , patient says he has increased cough with some sputum production, denies any fever or chills , denies any chest pain or tightness , denies any headache , denies any focal neurological symptoms . During the inpatient stay he went for CT guided biopsy , IR physician decided it would be unsafe to do the biopsy instead he underwent CT guided thoracentesis pleural fluid cytology pending. Pulmonary was consulted for repeat Biopsy with Endobronchial Ultrasound. Past Med Surg Social Fam HX - Past Medical History Medical history: other Psychiatric history: no psych history - Social History Smoking Status: Former smoker Smokeless Tobacco Status: No Alcohol use: none Drug use: none - Family History Brother Living Status: Age at : 27 Cause of : LUNG CANCER Hx Family Cancer: Yes Sister Race: Family Member Ethnicity: Non- Living Status: Still Living Hx Family Cancer: Yes (unknown) Father Living Status: Hx Family Cancer: Yes Mother Hx Family Endocrine Disorder: Yes (DM) Medications and Allergies Aspirin 81 mg PO DAILY 12/31/16 [History] Atorvastatin Calcium 80 mg PO DAILY 12/31/16 [History] amLODIPine [Norvasc] 5 mg PO DAILY 12/31/16 [History] Albuterol Sulfate [Albuterol Inhaler] 2 puff IH Q4H PRN 02/04/17 [History] Budesonide/Formoterol 160/4.5 [Symbicort 160/4.5] 2 puff IH BIDR 03/19/17 [ History] Diltiazem CD (24hr) [Cardizem CD] 120 mg PO DAILY 03/19/17 [History] LORazepam [Ativan] 0.5 mg PO BID 03/19/17 [History] 3 Allergy/AdvReac Type Severity Reaction Status Date / Time No Known Allergies Allergy Verified 03/19/17 11:34 All Systems: A 10-system review of systems was performed and is negative for pertinent findings except as documented above in the HPI. Physical Examination Vital Signs: Vital Signs, Last 4 Hours Temp Pulse Resp BP Pulse Ox 03/22/17 19:41 99.1 F 107 20 112/67 95 Auscultation: left: diminished breath sounds, wheezes Results - Laboratory Findings CBC and BMP: 03/22/17 06:13 03/22/17 06:13 PT/INR, D-dimer PT 14.9 Seconds (9.4-12.1) H 03/19/17 10:35 Abnormal lab findings: Abnormal lab results RBC 3.76 M/mcL (4.19-5.50) L 03/22/17 06:13 Hgb 9.1 g/dL (12.9-16.9) L 03/22/17 06:13 Hct 30.3 % (37.5-50.1) L 03/22/17 06:13 MCV 80.6 fL (83.0-100.0) L 03/22/17 06:13 MCH 24.2 pg (28.0-33.3) L 03/22/17 06:13 MCHC 30.0 g/dL (31.6-35.5) L 03/22/17 06:13 RDW 19.2 % (11.5-14.5) H 03/22/17 06:13 Plt Count 419 K/mcL (140-400) H 03/22/17 06:13 MPV 8.6 fL (9.4-12.4) L 03/22/17 06:13 Lymphocytes # 0.4 K/mcL (0.6-4.6) L 03/22/17 06:13 PT 14.9 Seconds (9.4-12.1) H 03/19/17 10:35 Sodium 135 mEq/L (136-145) L 03/22/17 06:13 Glucose 133 mg/dL (70-99) H 03/22/17 06:13 POC Glucose 137 (58-89) H 03/21/17 11:20 Calcium 8.3 mg/dL (8.6-10.8) L 03/22/17 06:13 AST 67 Units/L (5-34) H 03/22/17 06:13 ALT 118 Units/L (0-55) H 03/22/17 06:13 Ammonia 14 mcmol/L (18-72) L 03/19/17 10:46 Albumin 1.8 g/dL (3.5-5.0) L D 03/22/17 06:13 Globulin 4.2 g/dL (2.4-3.5) H 03/22/17 06:13 Albumin/Globulin Ratio 0.4 (1.1-2.2) L 03/22/17 06:13 Urine Protein 30 mg/dL (Neg-Trace) H 03/19/17 13:53 Urine Ketones Trace mg/dL (Negative) H 03/19/17 13:53 Ur Squamous Epith Cells Many per lpf (None-Few) H 03/19/17 13:53 Fluid Appearance Slightly Hazy (Clear) A 03/21/17 12:50 - Clinical Findings Intake & Output: Intake & Output 03/22/17 03/22/17 03/22/17 07:59 15:59 23:59 Intake Total 1120 / 1120 120 / 120 260 / 260 Output Total 950 / 950 650 / 650 350 / 350 Balance 170 / 170 -530 / -530 -90 / -90 Weight 64.592 kg Consult Discharge Plan - Plan Referrals: Yael Perry MD [Primary Care Provider] -
[2017-03-23] MEDS: 0.9 % Sodium Chloride 1,000 ML IVC SCH ×5 (00:30→00:34)
[2017-03-23 04:16] LABS: Basophils % 0.4 %; Eosinophils # 0.1 K/mcL (0.0-0.6); Hematocrit 30.5 % (37.5-50.1); Hemoglobin 9.2 g/dL (12.9-16.9); Immature Granulocytes % 0.9 % (0-4); Lymphocytes # 0.4 K/mcL (0.6-4.6); Lymphocytes % 5.1 %; Mean Corpuscular HGB Conc 30.2 g/dL (31.6-35.5); Mean Corpuscular Hemoglobin 24.5 pg (28.0-33.3); Mean Corpuscular Volume 81.1 fL (83.0-100.0); Mean Platelet Volume 8.7 fL (9.4-12.4); Monocytes # 0.6 K/mcL (0.0-1.3); Monocytes % 7.5 %; Neutrophils # 6.8 K/mcL (1.6-8.9); Platelet Count 430 K/mcL (140-400); Red Blood Count 3.76 M/mcL (4.19-5.50); Red Cell Distribution Width 19.3 % (11.5-14.5); Segmented Neutrophils % 85.1 %
[2017-03-23 04:33] LABS: Alanine Aminotransferase 123 Units/L (0-55); Albumin/Globulin Ratio 0.4 (1.1-2.2); Alkaline Phosphatase 72 Units/L (38-126); Aspartate Amino Transferase 72 Units/L (5-34); BUN/Creatinine Ratio 13 (6-26); Bilirubin,Total 0.4 mg/dL (0.2-1.2); Blood Urea Nitrogen 10 mg/dL (8-26); Calcium 8.5 mg/dL (8.6-10.8); Carbon Dioxide 26 mEq/L (19-29); Chloride 104 mEq/L (98-109); Globulin 4.3 g/dL (2.4-3.5); Glucose 133 mg/dL (70-99); Osmolality,Calculated 285 (280-300); Potassium 4.4 mEq/L (3.5-4.5); Sodium 137 mEq/L (136-145); Total Protein 6.1 g/dL (6.0-8.3); eGFR For African Americans > 60 (> 60); eGFR For Non-African Americans > 60 (> 60)
[2017-03-23 04:40] LABS: Albumin 1.8 g/dL (3.5-5.0)
[2017-03-23] MEDS: *HR* Heparin 5,000 UNIT/ML VIAL SQ SCH (06:56)
[2017-03-23] MEDS: Budesonide/Formoterol 160/4.5 MDI IH SCH (08:24)
[2017-03-23] MEDS ORDERED: predniSONE 20 MG TABLET PO SCH (09:00)
[2017-03-23] MEDS: *HR* LORazepam 0.5 MG TABLET PO SCH (09:47)
[2017-03-23] MEDS: cefTRIAXone 1,000 MG in Water for inj. (sterile) 10 ML IVP SCH (09:48)
[2017-03-23] MEDS: Aspirin 81 MG TAB.CHEW PO SCH (09:48)
[2017-03-23] MEDS: Azithromycin 500 MG in D5% in Water 250 ML IVPB SCH (09:48)
[2017-03-23 10:59] VITALS: BP 100/62
--- NOTE | 2017-03-23 11:50 | Discharge Summary ---
Date of Encounter: 03/24/17 Time of Encounter: 11:48 - Discharge Diagnosis (1) Lung mass Priority: Primary Status: Acute (2) Left lower lobe pneumonia Priority: Primary Status: Acute Qualifiers: Pneumonia type: due to unspecified organism Qualified Code(s): J18.1 - Lobar pneumonia, unspecified organism (3) HLD (hyperlipidemia) Priority: Secondary Status: Chronic Qualifiers: Hyperlipidemia type: pure hypercholesterolemia Qualified Code(s): E78.00 - Pure hypercholesterolemia, unspecified; E78.0 - Pure hypercholesterolemia (4) DVT prophylaxis Priority: Secondary Status: Acute - Discharge Medications Prescriptions: Doxycycline 100 mg PO BID #14 capsule predniSONE [PredniSONE] 40 mg PO DAILY #10 tablet Home Medications: Aspirin 81 mg PO DAILY 12/31/16 [History] Atorvastatin Calcium 80 mg PO DAILY 12/31/16 [History] amLODIPine [Norvasc] 5 mg PO DAILY 12/31/16 [History] Albuterol Sulfate [Albuterol Inhaler] 2 puff IH Q4H PRN 02/04/17 [History] Budesonide/Formoterol 160/4.5 [Symbicort 160/4.5] 2 puff IH BIDR 03/19/17 [ History] Diltiazem CD (24hr) [Cardizem CD] 120 mg PO DAILY 03/19/17 [History] LORazepam [Ativan] 0.5 mg PO BID 03/19/17 [History] Doxycycline 100 mg PO BID #14 capsule 03/23/17 [Rx] predniSONE [PredniSONE] 40 mg PO DAILY #10 tablet 03/23/17 [Rx] Allergies/Adverse Reactions: 3 Allergy/AdvReac Type Severity Reaction Status Date / Time No Known Allergies Allergy Verified 03/19/17 11:34 Procedures/tests Complete & Pending: Procedures Performed prior 72 hours Category Date Time Status CT abd pelvis wo no iv no oral [CT] Routine Cat Scan 03/21/[address] guided thoracentesis [CT] Routine Cat Scan 03/21/17 Completed EV carotid duplex imaging BI Stat Y 03/20/17 15:12 Completed EV echocardiogram Stat Y 03/20/17 15:12 Completed Date of admission: 03/19/17 12:03 Primary care physician: Yael Perry, Consults: 03/20/17 09:28 Consult to Pulmonology [CONS] Routine Consulting Provider: [facility] Reason for Consult: lung mass Time Notified: :28 Call Completed: No 03/20/17 09:29 Consult to Interventional Radiology [CONS] Routine Consulting Provider: Radiology Interventional Cols Reason for Consult: lung mass Time Notified: :30 Call Completed: No 03/20/17 09:42 Consult to Nutrition [CONS] Routine Comment: Consulting Provider: NUTRITION Reason for Dietary Consult: PO Supplementation Discharging clinician: Randolph Hand - Patient Status Disposition: Home, Self-Care Condition: Fair Functional capacity at discharge: independent ambulation Overall status at discharge: patient is progressing back to baseline - Discharge Instructions Instructions: How to Use an Incentive Spirometer (DC) Follow Up With: Yael Perry MD [Primary Care Provider] - - Diet and Activity Activity: increase activity as tolerated Diet: low fat, low cholesterol, low salt diet Interval History: Mr. Maravilla is a 76 year old male with a PMH of lymphoma, emphysema, HTN, HLD, syncope requiring a pacer, and a lung mass suspicious for cancer. He presents today to [facility] for a near syncopal event while in the radiology office today for Lt lung mass biopsy. He family and staff noticed that he was slumped over in his chair and difficult to arouse. While attempting to arouse the patient he began vomiting. He reports that he felt fine prior to arrival. He denies any fevers, diarrhea, excess fatigue, dizziness, palpitations, chest pain H/a, abdominal pain, dysuria, hematemesis or hematochezia. He admits to a chronic cough to which he has had since 12/05 with scant white sputum and baseline SOB. CXR reveals a LLL PNA. He is being admitted for further workup and treatment. Hospital course: Mr. Maravilla is a 76 year old male was hospitalized. Patient was stabilized. Workup for syncope as follows. CT head: Negative for any acute ischemia/bleed MRI head: Unable to get it done due to the presence of a pacer. Echocardiogram: Ejection fraction 55%/no PFO. Ultrasound carotid: Nonstenotic plaque Bilaterally Patient was sent to interventional radiology for CT-guided biopsy of the left lesion. Being the lesion is central interventional radiology recommended CT abdomen and pelvis and possible intervention if there is any large lymph node. Apparently CT abdomen and pelvis showed multiple hepatic lesions and there are not enough to get biopsy from. Left-sided thoracentesis was done. Cytology pending. Pleural fluid: Nuclear test results 1419, segmented neutrophils 74%: Patient asymptomatic. Pulmonary was consulted. Patient was able to walk this morning more than 300 m. Patient was mildly short of breath but his oxygen saturation was more than 92%. Plan: Home as per the recommendations of pulmonary. Scheduled for a ebus on coming Friday for the left hilar mass. Patient aware of the same. Doxycycline/prednisone given as per the recommendation of pulmonary All questions answered - Time Spent with Patient Total time spent providing and/or coordinating discharge services: - Constitutional Vitals: Temp Pulse Resp BP Pulse Ox 97.9 F 95 16 100/62 95 03/23/17 10:58 03/23/17 10:58 03/23/17 10:58 03/23/17 10:58 03/23/17 10:58 General appearance: Present: cachectic, A&O X 3, no acute distress, underweight , answers questions appropriately - Head Head exam: Present: atraumatic, normocephalic - Eye Eye exam: Present: PERRL, conjuntiva pink, sclera anicteric Pupils: Present: PERRL - Neck Neck exam general surgery: Present: supple, trachea midline. Absent: lymphadenopathy - Respiratory Respiratory exam: Present: CTAB. Absent: accessory muscle use, rales, rhonchi, wheezes - Cardiovascular Cardiovascular exam: Present: RRR, +S1, +S2. Absent: diastolic murmur, gallop, rubs, systolic murmur - GI/Abdominal GI/Abdominal exam: Present: normal bowel sounds, soft, no peritoneal signs. Absent: distended, tenderness - Extremities Exam Extremities exam: Present: warm, radial pulses palpable and symmetrical. Absent : calf tenderness, cyanotic, pedal edema - Neurological Exam Neurological exam: Present: CN II-XII intact, oriented X3, no focal deficits. Absent: pronater drift, facial droop, speech deficit - Skin Skin exam: Present: dry, intact
[2017-03-23] MEDS ORDERED: FLUARIX QUAD 2017-18 36MOS UP/PF 0.5 ML SYRINGE IM ONE (12:10)
== END 2017-03-23 13:20 | disposition home or self-care (01) ==
LOC: EMEROO 10:12 → 3ANU 10:12
PROVIDERS: ADMIT Internal Medicine; ATTEND Family Medicine

== ENCOUNTER 2017-07-01 08:53 | Inpatient (IN) ==
[~2017-07-01 08:53] MED LIST: Aminoglycoside Consult 1 EACH MC ONE
[2017-07-01] MEDS ORDERED: 0.9 % Sodium Chloride 1,000 ML ONE (08:59)
[2017-07-01] MEDS ORDERED: Norepinephrine 4 MG in D5% in Water 250 ML IVC SCH (09:00)
[2017-07-01] MEDS ORDERED: Cefepime HCl 2,000 MG in Water for inj. (sterile) 20 ML 20 ML IVP ONE (09:00)
[2017-07-01] MEDS ORDERED: 0.9 % Sodium Chloride 1,000 ML IVC ONE (09:00)
[2017-07-01 09:24] LABS: Basophils % 0.1 %; Eosinophils % 0.1 %; Hematocrit 32.8 % (37.5-50.1); Hemoglobin 9.9 g/dL (12.9-16.9); Immature Granulocytes % 4.3 % (0-4); Lymphocytes # 0.2 K/mcL (0.6-4.6); Mean Corpuscular HGB Conc 30.2 g/dL (31.6-35.5); Mean Corpuscular Hemoglobin 25.1 pg (28.0-33.3); Mean Platelet Volume 9.6 fL (9.4-12.4); Monocytes # 0.7 K/mcL (0.0-1.3); Monocytes % 4.3 %; Neutrophils # 13.7 K/mcL (1.6-8.9); Platelet Count 418 K/mcL (140-400); Red Blood Count 3.95 M/mcL (4.19-5.50); Segmented Neutrophils % 90.2 %
[2017-07-01 09:28] LABS: INR 1.6; Prothrombin Time 17.2 Seconds (9.4-12.1)
[2017-07-01 09:31] LABS: Activated Partial Thrombo Time 44.1 Seconds (26.0-36.0)
[2017-07-01 09:53] LABS: Troponin I 0.04 ng/mL (< 0.04)
[2017-07-01 10:03] LABS: Anisocytosis 2+ (Not Present); Microcytosis Present (Not Present); Platelet Estimate Increased (Normal)
[2017-07-01] MEDS: 0.9 % Sodium Chloride 1,000 ML IVC SCH ×2 (10:22→21:35)
[2017-07-01 10:51] LABS: Alanine Aminotransferase 79 Units/L (7-52); Albumin 2.4 g/dL (3.5-5.7); Albumin/Globulin Ratio 0.8 (1.1-2.2); Alkaline Phosphatase 81 Units/L (34-104); Aspartate Amino Transferase 41 Units/L (13-39); BUN/Creatinine Ratio 35 (6-26); Bilirubin,Direct 0.2 mg/dL (0.0-0.2); Bilirubin,Indirect 0.6 mg/dL (0.0-1.2); Bilirubin,Total 0.8 mg/dL (0.3-1.0); Blood Urea Nitrogen 30 mg/dL (8-23); Calcium 8.3 mg/dL (8.6-10.3); Carbon Dioxide 21 mEq/L (23-29); Chloride 101 mEq/L (98-107); Glucose 207 mg/dL (70-105); Lipase 17 Units/L (11-82); Magnesium 1.8 mg/dL (1.6-2.6); Osmolality,Calculated 290 (280-300); Phosphorous 3.7 mg/dL (2.7-4.5); Potassium 3.5 mEq/L (3.5-5.1); Sodium 134 mEq/L (136-145); Total Protein 5.4 g/dL (6.4-8.9); eGFR For African Americans > 60 (> 60); eGFR For Non-African Americans > 60 (> 60)
[2017-07-01 12:24] LABS: Bilirubin,Urine Negative (Negative); Blood,Urine Negative (Negative); Clarity,Urine Clear (Clear); Color,Urine Yellow (Yellow); Glucose,Urine (UA) Normal (Normal); Ketones,Urine Negative (Negative); Leukocyte Esterase,Urine Negative (Negative); Nitrite,Urine Negative (Negative); PH,Urine 6.5 pH Units (5.0-8.0); Protein,Urine 30 mg/dL (Neg-Trace); Specific Gravity,Urine 1.019 (1.010-1.025); Urobilinogen,Urine Normal (Normal)
[2017-07-01 12:28] LABS: Bacteria,Urine None Seen per hpf (None-Few); Hyaline Casts,Urine Few per lpf (None-Few); Squamous Epithelial Cell,Urine Many per lpf (None-Few)
[2017-07-01 12:51] LABS: ABG Base Excess 1 mEq/L (-2 to 3); ABG HCO3 24 mEq/L (21-27); ABG Oxygen Saturation 96 % (95-98); ABG PCO2 32 mmHg (35-45); ABG PH 7.48 pH Units (7.32-7.45); ABG PO2 77 mmHg (85-104); ABG TCO2 25 mEq/L (20-26)
[2017-07-01 13:01] LABS: Mucus,Urine Few (Few)
[2017-07-01 13:02] LABS: Renal Epithelial Cells,Urine Few per hpf (None-Few)
--- NOTE | 2017-07-01 14:46 | Emergency Department Note ---
Disposition Clinical Impression: Sepsis Qualifiers: Sepsis type: sepsis due to unspecified organism Qualified Code(s): A41.9 - Sepsis, unspecified organism Disposition: Admitted As Inpatient Referrals: Yael Perry MD [Primary Care Provider] - General Adult HPI - General Chief complaint: ED General Medical Stated complaint: Low BP Time Seen by Provider: 07/01/17 09:00 Source: patient, family, EMS Nursing Notes Reviewed: Yes Vital Signs Reviewed: Yes - History of Present Illness HPI Narrative: This is a 76-year-old male presents with concern for dehydration and failure to thrive. He presents from the cancer center. There is concern of decreased by mouth intake over the past 5 days. The cancer center was also concerned about hypotension. The patient arrives tachycardic, hypotensive. No focal neurological deficit, mentating appropriately on arrival. General: Acute distress HEENT: Pupils equal and reactive to light, extraoccular muscle movement is normal, TMS are clear bilaterally. ABD: SNT, no focal areas or tenderness, no guarding or rebound tenderness. Extremities: No cyanosis, clubbing or edema Neuro: CN 2-12 in tact, no focal deficit. strength 5/5. Heart rate is tachycardic Lungs are diminished over the left lung field Abdomen is soft and nontender Skin is pale and dr Medical decision making This is a 76-year-old male who presents with tachycardia, hypotensive. There is concern for dehydration versus sepsis. Broad spectrum antibiotics were administered. Cultures were also sent. The patient will be admitted for further evaluation. He was found have a large left-sided pleural effusion. There is a current Pleurx catheter in place. Attempts at bedside drainage were unsuccessful due to potential clot in the pluradex tube. I did discuss the imaging results with the on-call radiologist at bedside. It appears that the patient has increased invasion of disease into the bronchus which is causing complete collapse of the lung. The radiologist does not believe he would benefit from drainage as he feels this could worsen or possibly grade pneumothorax. I would defer drainage of this at this time as this appears to be worsening of disease as opposed to true hydrothorax per the attending radiologist. I spent greater than 35 minutes of critical care time resuscitating this acutely ill patient suffering from sepsis. This was excluding billable procedures. Pain Scale: 0 - Related Data Home Medications Medication Instructions Recorded Confirmed Aspirin 81 mg PO DAILY 12/31/16 07/01/17 Atorvastatin Calcium 80 mg PO DAILY 12/31/16 07/01/17 Albuterol Sulfate [Albuterol 2 puff IH Q4H PRN 02/04/17 07/01/17 Inhaler] Budesonide/Formoterol 160/4.5 2 puff IH BIDR 03/19/17 07/01/17 [Symbicort 160/4.5] Docusate Sodium [Dok] 100 mg PO DAILY 07/01/17 07/01/17 Fluconazole [Diflucan] 100 mg PO DAILY 07/01/17 07/01/17 Furosemide [Lasix] 40 mg PO DAILY 07/01/17 07/01/17 LORazepam [Ativan] 1 mg PO QID PRN 07/01/17 07/01/17 Polyethylene Glycol 3350 [MiraLAX 1 scoop PO DAILY 07/01/17 07/01/17 Powder Bulk 17.9 Oz] predniSONE [Prednisone] 50 mg PO DAILY PRN 07/01/17 07/01/17 Previous Rx's Medication Instructions Recorded Megestrol Acetate [Megace] 800 mg PO DAILY #400 mls 05/29/17 Allergies Allergy/AdvReac Type Severity Reaction Status Date / Time No Known Allergies Allergy Verified 04/30/17 08:12 All systems ED: reviewed and negative except as stated. Past Medical History - Past Medical History Medical history: Reports: hypertension, myocardial infarction, other Psychiatric history: Reports: no psych history - Social History Smoking Status: Former smoker Smokeless Tobacco Status: No Alcohol use: Reports: none Drug use: Reports: none Physical Exam - General General appearance: other Course Vital Signs Temperature 97.8 F 07/01/17 08:57 Pulse Rate 115 07/01/17 08:57 Respiratory Rate 22 07/01/17 08:57 Blood Pressure 75/60 07/01/17 08:57 O2 Sat by Pulse Oximetry 95 07/01/17 08:57 Temperature 97.8 F 07/01/17 08:57 Pulse Rate 95 07/01/17 14:12 Respiratory Rate 18 07/01/17 14:12 Blood Pressure 103/56 07/01/17 14:12 O2 Sat by Pulse Oximetry 93 07/01/17 14:12 Oxygen Delivery Oxygen Delivery Nasal Cannula Medical Decision Making - Lab Data Result diagrams: 07/01/17 09:07 07/01/17 09:07 Lab Results 07/01/17 07/01/17 07/01/17 Range/Units 09:07 09:07 09:07 WBC 15.2 H (4.3-11.1) K/mcL RBC 3.95 L (4.19-5.50) M/mcL Hgb 9.9 L (12.9-16.9) g/dL Hct 32.8 L (37.5-50.1) % MCV 83.0 (83.0-100.0) fL MCH 25.1 L (28.0-33.3) pg MCHC 30.2 L (31.6-35.5) g/dL RDW 24.0 H (11.5-14.5) % Plt Count 418 H (140-400) K/mcL MPV 9.6 (9.4-12.4) fL Immature Gran % 4.3 H (0-4) % Seg Neutrophils % 90.2 % Lymphocytes % 1.0 % Monocytes % 4.3 % Eosinophils % 0.1 % Basophils % 0.1 % Neutrophils # 13.7 H (1.6-8.9) K/mcL Lymphocytes # 0.2 L (0.6-4.6) K/mcL Monocytes # 0.7 (0.0-1.3) K/mcL Eosinophils # 0.0 (0.0-0.6) K/mcL Basophils # 0.0 (0.0-0.2) K/mcL Platelet Estimate Increased H (Normal) Immature Plt Fraction 3.0 (1.1-6.1) % Anisocytosis 2+ A (Not Present) Microcytosis Present A (Not Present) PT 17.2 H (9.4-12.1) Seconds INR 1.6 APTT 44.1 H (26.0-36.0) Seconds Sample Site ABG pH (7.32-7.45) pH Units ABG pCO2 (35-45) mmHg ABG pO2 (85-104) mmHg ABG HCO3 (21-27) mEq/L ABG Total CO2 (20-26) mEq/L ABG O2 Saturation (95-98) % ABG Base Excess (-2 to 3) mEq/L [place] Test O2 Delivery Device Inspired O2 (1-15=lpm [id number]=%) Sodium 134 L (136-145) mEq/L Potassium 3.5 (3.5-5.1) mEq/L Chloride 101 (98-107) mEq/L Carbon Dioxide 21 L (23-29) mEq/L BUN 30 H (8-23) mg/dL Creatinine 0.86 (0.70-1.30) mg/dL Est GFR ( Amer) > 60 (> 60) Est GFR (Non-Af Amer) > 60 (> 60) BUN/Creatinine Ratio 35 H (6-26) Glucose 207 H (70-105) mg/dL Calculated Osmolality 290 (280-300) Lactic Acid (0.5-2.2) mmol/L Calcium 8.3 L (8.6-10.3) mg/dL Phosphorus 3.7 (2.7-4.5) mg/dL Magnesium 1.8 (1.6-2.6) mg/dL Total Bilirubin 0.8 (0.3-1.0) mg/dL Direct Bilirubin 0.2 (0.0-0.2) mg/dL Indirect Bilirubin 0.6 (0.0-1.2) mg/dL AST 41 H (13-39) Units/L ALT 79 H (7-52) Units/L Alkaline Phosphatase 81 (34-104) Units/L Troponin I 0.04 H* (< 0.04) ng/mL B-Natriuretic Peptide (Less than 100) pg/mL Serum Total Protein 5.4 L (6.4-8.9) g/dL Albumin 2.4 L (3.5-5.7) g/dL Globulin 3.0 (2.4-3.5) g/dL Albumin/Globulin Ratio 0.8 L (1.1-2.2) Lipase 17 (11-82) Units/L Urine Color (Yellow) Urine Clarity (Clear) Urine pH (5.0-8.0) pH Units Ur Specific [place] (1.010-1.025) Urine Protein (Neg-Trace) mg/dL Urine Glucose (UA) (Normal) mg/dL Urine Ketones (Negative) mg/dL Urine Blood (Negative) Urine Nitrite (Negative) Urine Bilirubin (Negative) Urine Urobilinogen (Normal) mg/dL Ur Leukocyte Esterase (Negative) Urine Microscopic RBC (0-3) per hpf Urine Microscopic WBC (0-3) per hpf Ur Squamous Epith Cells (None-Few) per lpf Ur Renal Epithelial Cell (None-Few) per hpf Urine Bacteria (None-Few) per hpf Hyaline Casts (None-Few) per lpf Urine Mucus (Few) Ur Culture Indicated? (NO) Blood Type Antibody Screen 07/01/17 07/01/17 07/01/17 Range/Units 09:07 09:07 09:07 WBC (4.3-11.1) K/mcL RBC (4.19-5.50) M/mcL Hgb (12.9-16.9) g/dL Hct (37.5-50.1) % MCV (83.0-100.0) fL MCH (28.0-33.3) pg MCHC (31.6-35.5) g/dL RDW (11.5-14.5) % Plt Count (140-400) K/mcL MPV (9.4-12.4) fL Immature Gran % (0-4) % Seg Neutrophils % % Lymphocytes % % Monocytes % % Eosinophils % % Basophils % % Neutrophils # (1.6-8.9) K/mcL Lymphocytes # (0.6-4.6) K/mcL Monocytes # (0.0-1.3) K/mcL Eosinophils # (0.0-0.6) K/mcL Basophils # (0.0-0.2) K/mcL Platelet Estimate (Normal) Immature Plt Fraction (1.1-6.1) % Anisocytosis (Not Present) Microcytosis (Not Present) PT (9.4-12.1) Seconds INR APTT (26.0-36.0) Seconds Sample Site ABG pH (7.32-7.45) pH Units ABG pCO2 (35-45) mmHg ABG pO2 (85-104) mmHg ABG HCO3 (21-27) mEq/L ABG Total CO2 (20-26) mEq/L ABG O2 Saturation (95-98) % ABG Base Excess (-2 to 3) mEq/L [place] Test O2 Delivery Device Inspired O2 (1-15=lpm [id number]=%) Sodium (136-145) mEq/L Potassium (3.5-5.1) mEq/L Chloride (98-107) mEq/L Carbon Dioxide (23-29) mEq/L BUN (8-23) mg/dL Creatinine (0.70-1.30) mg/dL Est GFR ( Amer) (> 60) Est GFR (Non-Af Amer) (> 60) BUN/Creatinine Ratio (6-26) Glucose (70-105) mg/dL Calculated Osmolality (280-300) Lactic Acid 3.3 H (0.5-2.2) mmol/L Calcium (8.6-10.3) mg/dL Phosphorus (2.7-4.5) mg/dL Magnesium (1.6-2.6) mg/dL Total Bilirubin (0.3-1.0) mg/dL Direct Bilirubin (0.0-0.2) mg/dL Indirect Bilirubin (0.0-1.2) mg/dL AST (13-39) Units/L ALT (7-52) Units/L Alkaline Phosphatase (34-104) Units/L Troponin I (< 0.04) ng/mL B-Natriuretic Peptide 172 H (Less than 100) pg/mL Serum Total Protein (6.4-8.9) g/dL Albumin (3.5-5.7) g/dL Globulin (2.4-3.5) g/dL Albumin/Globulin Ratio (1.1-2.2) Lipase (11-82) Units/L Urine Color (Yellow) Urine Clarity (Clear) Urine pH (5.0-8.0) pH Units Ur Specific [place] (1.010-1.025) Urine Protein (Neg-Trace) mg/dL Urine Glucose (UA) (Normal) mg/dL Urine Ketones (Negative) mg/dL Urine Blood (Negative) Urine Nitrite (Negative) Urine Bilirubin (Negative) Urine Urobilinogen (Normal) mg/dL Ur Leukocyte Esterase (Negative) Urine Microscopic RBC (0-3) per hpf Urine Microscopic WBC (0-3) per hpf Ur Squamous Epith Cells (None-Few) per lpf Ur Renal Epithelial Cell (None-Few) per hpf Urine Bacteria (None-Few) per hpf Hyaline Casts (None-Few) per lpf Urine Mucus (Few) Ur Culture Indicated? (NO) Blood Type B POSITIVE Antibody Screen NEGATIVE 07/01/17 07/01/17 07/01/17 Range/Units 12:14 12:48 13:03 WBC (4.3-11.1) K/mcL RBC (4.19-5.50) M/mcL Hgb (12.9-16.9) g/dL Hct (37.5-50.1) % MCV (83.0-100.0) fL MCH (28.0-33.3) pg MCHC (31.6-35.5) g/dL RDW (11.5-14.5) % Plt Count (140-400) K/mcL MPV (9.4-12.4) fL Immature Gran % (0-4) % Seg Neutrophils % % Lymphocytes % % Monocytes % % Eosinophils % % Basophils % % Neutrophils # (1.6-8.9) K/mcL Lymphocytes # (0.6-4.6) K/mcL Monocytes # (0.0-1.3) K/mcL Eosinophils # (0.0-0.6) K/mcL Basophils # (0.0-0.2) K/mcL Platelet Estimate (Normal) Immature Plt Fraction (1.1-6.1) % Anisocytosis (Not Present) Microcytosis (Not Present) PT (9.4-12.1) Seconds INR APTT (26.0-36.0) Seconds Sample Site L Radial ABG pH 7.48 H (7.32-7.45) pH Units ABG pCO2 32 L (35-45) mmHg ABG pO2 77 L (85-104) mmHg ABG HCO3 24 (21-27) mEq/L ABG Total CO2 25 (20-26) mEq/L ABG O2 Saturation 96 (95-98) % ABG Base Excess 1 (-2 to 3) mEq/L [place] Test Positive O2 Delivery Device Cannula Inspired O2 36.0 (1-15=lpm [id number]=%) Sodium (136-145) mEq/L Potassium (3.5-5.1) mEq/L Chloride (98-107) mEq/L Carbon Dioxide (23-29) mEq/L BUN (8-23) mg/dL Creatinine (0.70-1.30) mg/dL Est GFR ( Amer) (> 60) Est GFR (Non-Af Amer) (> 60) BUN/Creatinine Ratio (6-26) Glucose (70-105) mg/dL Calculated Osmolality (280-300) Lactic Acid 2.1 (0.5-2.2) mmol/L Calcium (8.6-10.3) mg/dL Phosphorus (2.7-4.5) mg/dL Magnesium (1.6-2.6) mg/dL Total Bilirubin (0.3-1.0) mg/dL Direct Bilirubin (0.0-0.2) mg/dL Indirect Bilirubin (0.0-1.2) mg/dL AST (13-39) Units/L ALT (7-52) Units/L Alkaline Phosphatase (34-104) Units/L Troponin I (< 0.04) ng/mL B-Natriuretic Peptide (Less than 100) pg/mL Serum Total Protein (6.4-8.9) g/dL Albumin (3.5-5.7) g/dL Globulin (2.4-3.5) g/dL Albumin/Globulin Ratio (1.1-2.2) Lipase (11-82) Units/L Urine Color Yellow (Yellow) Urine Clarity Clear (Clear) Urine pH 6.5 (5.0-8.0) pH Units Ur Specific [place] 1.019 (1.010-1.025) Urine Protein 30 H (Neg-Trace) mg/dL Urine Glucose (UA) Normal (Normal) mg/dL Urine Ketones Negative (Negative) mg/dL Urine Blood Negative (Negative) Urine Nitrite Negative (Negative) Urine Bilirubin Negative (Negative) Urine Urobilinogen Normal (Normal) mg/dL Ur Leukocyte Esterase Negative (Negative) Urine Microscopic RBC 3-5 H (0-3) per hpf Urine Microscopic WBC 3-5 H (0-3) per hpf Ur Squamous Epith Cells Many H (None-Few) per lpf Ur Renal Epithelial Cell Few (None-Few) per hpf Urine Bacteria None Seen (None-Few) per hpf Hyaline Casts Few (None-Few) per lpf Urine Mucus Few (Few) Ur Culture Indicated? NO (NO) Blood Type Antibody Screen
--- NOTE | 2017-07-01 16:57 | Electrocardiograph Report ---
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
[2017-07-01] MEDS ORDERED: Naloxone 0.4 MG/ML INJ IVP PRN (21:00)
[2017-07-01] MEDS ORDERED: Acetaminophen 325 MG TABLET PO PRN (21:00)
[2017-07-01] MEDS ORDERED: predniSONE 20 MG TABLET PO PRN (21:04)
[2017-07-01] MEDS: *HR* LORazepam 1 MG TABLET PO PRN (21:27)
--- NOTE | 2017-07-01 22:17 | Internal Med History&Physical ---
Date of Encounter: 07/01/17 Time of Encounter: 20:00 Assessment and Plan (1) Pneumonia Current visit: Yes Status: Acute Patient has leukocytosis, tachycardia, hypotension, and elevated lactate level. Chest CT shows left side consolidation. Consider pneumonia co-existing with lung mass. - Place patient on Vanco and cefepime - Follow up blood culture - Continue oxygen supportive treatment and continue closely monitor patient Qualifiers: Pneumonia type: due to unspecified organism Laterality: left Lung location: unspecified part of lung Qualified Code(s): J18.9 - Pneumonia, unspecified organism (2) Sepsis Current visit: Yes Status: Acute Patient meets sepsis criteria. - Early goal directed IV fluid resuscitation started in the emergency room, lactate acid level Down after treatment. will continue IV fluid - Resource of infection is considered pneumonia - Continue Vanco and cefepime - Check lactate level - Closely monitor patient Qualifiers: Sepsis type: sepsis due to unspecified organism Qualified Code(s): A41.9 - Sepsis, unspecified organism (3) DVT prophylaxis Current visit: No Status: Acute Heparin subcutaneously (4) Lung mass Current visit: No Status: Acute Patient has a left-sided lung mass and is following oncology. Seems that the lung mass has increased size. Pt is very weak now. Will consult oncology and palliative care for further management plan. (5) Elevated troponin Current visit: Yes Status: Acute Mild elevated troponin on sepsis pt. most likely demand ischemia. Patient denies chest pain at this point. - Continue cardiac monitoring - We will check 3 sets of troponin to see the trend. Internal Medicine - H&P: HPI Chief complaint: Hypotension Admitted From: Home Plans for Post Hospital Care: Home History of present illness: Mr. Maravilla is a 76 year old male with history of lung cancer, S/P pacemaker, sent from oncology office to ER for hypotension. Patient is a poor historian. History is partially obtained by reviewing old chart. Patient has poor intake recently and had increased shortness of breath. Patient has a cough with whitish or yellowish sputum. Patient denies fever. Patient has occasionally chest pain but not today. Patient has mild nausea without vomiting. Patient was found blood pressure low and was sent to ER. In ER, his BP initially is at 70s. He was given IV fluid and BP getup to over 100. CT chest shows complete atelectasis and consolidation of the left lung; Fluid fills the left sided airways, beginning in the mainstem bronchus; Increased size of a large confluent mediastinal and bilateral hilar mass, with adjacent moderate lymphadenopathy. Patient was found leukocytosis as well. Patient was admitted for further management. Past Med Surg Social Fam HX - Past Medical History Medical history: hypertension, myocardial infarction, other Psychiatric history: no psych history - Social History Smoking Status: Former smoker Smokeless Tobacco Status: No Alcohol use: none Drug use: none - Family History Brother Living Status: Hx Family Cancer: Yes Sister Family Member Ethnicity: Non- Living Status: Still Living Hx Family Cancer: Yes (unknown) Father Living Status: Hx Family Cancer: Yes Mother Hx Family Endocrine Disorder: Yes (DM) Internal Medicine - H&P: Meds Aspirin 81 mg PO DAILY 12/31/16 [History] Atorvastatin Calcium 80 mg PO DAILY 12/31/16 [History] Albuterol Sulfate [Albuterol Inhaler] 2 puff IH Q4H PRN 02/04/17 [History] Budesonide/Formoterol 160/4.5 [Symbicort 160/4.5] 2 puff IH BIDR 03/19/17 [ History] Megestrol Acetate [Megace] 800 mg PO DAILY #400 mls 05/29/17 [Rx] Docusate Sodium [Dok] 100 mg PO DAILY 07/01/17 [History] Fluconazole [Diflucan] 100 mg PO DAILY 07/01/17 [History] Furosemide [Lasix] 40 mg PO DAILY 07/01/17 [History] LORazepam [Ativan] 1 mg PO QID PRN 07/01/17 [History] Polyethylene Glycol 3350 [MiraLAX Powder Bulk 17.9 Oz] 1 scoop PO DAILY [History] predniSONE [Prednisone] 50 mg PO DAILY PRN 07/01/17 [History] 3 Allergy/AdvReac Type Severity Reaction Status Date / Time No Known Allergies Allergy Verified 04/30/17 08:12 All Systems PM: A 10-system review of systems was performed and is negative for pertinent findings except as documented above in the HPI. - Constitutional Vitals: Temp Pulse Resp BP Pulse Ox 97.6 F 89 17 114/65 99 07/01/17 19:42 07/01/17 19:42 07/01/17 19:42 07/01/17 19:42 07/01/17 19:42 General appearance: Present: mild distress, A&O X 3, answers questions appropriately - Head Head exam: Present: atraumatic, normocephalic - Eye Eye exam: Present: PERRL, conjuntiva pink, sclera anicteric Pupils: Present: PERRL - Neck Neck exam general surgery: Present: supple, trachea midline. Absent: lymphadenopathy - Respiratory Respiratory exam: Present: CTAB. Absent: accessory muscle use, rales, rhonchi, wheezes Additional comments: Coarse breath sounds bilaterally - Cardiovascular Cardiovascular exam: Present: RRR, +S1, +S2. Absent: diastolic murmur, gallop, rubs, systolic murmur - GI/Abdominal GI/Abdominal exam: Present: normal bowel sounds, soft, no peritoneal signs. Absent: distended, tenderness - Extremities Exam Extremities exam: Present: warm, radial pulses palpable and symmetrical. Absent : calf tenderness, cyanotic, pedal edema - Neurological Exam Neurological exam: Present: CN II-XII intact, oriented X3, no focal deficits. Absent: pronater drift, facial droop, speech deficit - Skin Skin exam: Present: dry, intact Internal Med - H&P Results - Labs CBC & Chem 7: 07/01/17 09:07 07/01/17 09:07 - EKG Data -: EKG Interpreted by Myself (Paced rhythm)
[2017-07-01] MEDS: Budesonide/Formoterol 160/4.5 MDI IH SCH (22:26)
[2017-07-01] MEDS: Ipratropium/Albuterol Neb 3 ML IH PRN (23:26)
[2017-07-02] MEDS: *HR* LORazepam 1 MG TABLET PO PRN ×2 (01:22→01:24)
[2017-07-02] MEDS: Cefepime HCl 1,000 MG in Water for inj. (sterile) 20 ML 10 ML IVP SCH (01:23)
[2017-07-02] MEDS: Ipratropium/Albuterol Neb 3 ML IH PRN ×2 (04:19→20:11)
[2017-07-02 05:28] LABS: Basophils % 0.1 %; Eosinophils % 0.3 %; Hematocrit 31.7 % (37.5-50.1); Hemoglobin 9.2 g/dL (12.9-16.9); Immature Granulocytes % 2.8 % (0-4); Lymphocytes # 0.2 K/mcL (0.6-4.6); Lymphocytes % 2.1 %; Mean Corpuscular Hemoglobin 24.3 pg (28.0-33.3); Mean Corpuscular Volume 83.9 fL (83.0-100.0); Mean Platelet Volume 9.2 fL (9.4-12.4); Monocytes # 0.4 K/mcL (0.0-1.3); Monocytes % 4.2 %; Neutrophils # 9.2 K/mcL (1.6-8.9); Platelet Count 336 K/mcL (140-400); Red Blood Count 3.78 M/mcL (4.19-5.50); Red Cell Distribution Width 23.9 % (11.5-14.5); Segmented Neutrophils % 90.5 %
[2017-07-02 05:56] LABS: BUN/Creatinine Ratio 39 (6-26); Blood Urea Nitrogen 29 mg/dL (8-23); Calcium 7.9 mg/dL (8.6-10.3); Carbon Dioxide 25 mEq/L (23-29); Chloride 105 mEq/L (98-107); Glucose 152 mg/dL (70-105); Magnesium 1.9 mg/dL (1.6-2.6); Osmolality,Calculated 293 (280-300); Potassium 3.3 mEq/L (3.5-5.1); Sodium 137 mEq/L (136-145); eGFR For African Americans > 60 (> 60); eGFR For Non-African Americans > 60 (> 60)
[2017-07-02 06:19] LABS: Hypochromasia Present (Not Present); Platelet Estimate Normal (Normal); Polychromasia 2+ (Not Present)
[2017-07-02] MEDS ORDERED: Cefepime HCl 1,000 MG in Water for inj. (sterile) 20 ML 10 ML IVP SCH (08:00)
[2017-07-02] MEDS: *HR* Heparin 5,000 UNIT/ML VIAL SQ SCH ×2 (08:05→16:55)
[2017-07-02] MEDS: Budesonide/Formoterol 160/4.5 MDI IH SCH ×2 (08:15→20:07)
[2017-07-02] MEDS ORDERED: Megestrol Acetate 400 MG/10 ML UDC PO SCH (09:00)
[2017-07-02] MEDS ORDERED: Furosemide 40 MG/4 ML VIAL IVP ONE (09:24)
--- NOTE | 2017-07-02 09:43 | Internal Med Progress Note ---
<Timothy Huizar - Last Filed: 07/02/17 11:47> Date of Encounter: 07/02/17 Time of Encounter: 09:42 - Assessment and plan (1) Lung mass Current Visit: Yes Status: Acute Assessment and plan: patient has known lung cancer. Hodgkin's lymphoma. has worsening shortness of breath with less drainage from Pleurx catheter beginning last night. Chest x -ray reveals new left dye fuse opacification left hemithorax representing combination of pleural fluid and volume ls. Chest CT reveals complete atelectasis and consolidation of the left lung. fluid filling the left-sided airways beginning in the mainstem bronchus. moderate left-sided pleural effusion. Chest CT from last night is significantly worse when in comparison to the one performed in February in regards to the size of the lung mass. patient has poor prognosis at this time. I spoke with patient at bedside and explained his imaging results. I contacted his . Patient was full code in the hospital. and patient agreed to be DNR comfort care arrest DNI. Blood pressures have been very tenuous. He has had episodes of hypotension where his systolic has been in the 70s. Currently normotensive. Spoke with patient and and if needed, they do not want to use any pressors at this time. We will have palliative care come evaluate patient. Pulmonology has been consulted for further evaluation of the Pleurx catheter. Dr. Uribe stated that he would come see the patient. - spoke with regarding prognosis -Palliative care to come see patient - pulmonology consult For evaluation of Pleurx cathter, recommended Precedex and Bipap for now -40 mg Lasix IV - stop fluids at this time -placed DNR comfort care arrest DNI order -continue supplemental oxygen therapy, consider BiPAP if patient has any worsening of clinical status. Chest X-Ray 07/01/17 09:01 IMPRESSION: Line placement without pneumothorax. New diffuse opacification left hemithorax representing combination of pleural fluid and volume loss. D/ / Lauri Aguirre MD / Lauri Aguirre MD Interpreting Provider: Lauri Aguirre MD Chest CT 07/01/17 10:11 IMPRESSION: 1. In comparison to prior exams, there is now complete atelectasis and consolidation of the left lung. Fluid fills the left sided airways, beginning in the mainstem bronchus. 2. Small to moderate left-sided pleural effusion with a tunneled pleural catheter in place. A small amount of air is present layering anteriorly (hydropneumothorax), presumed related to the pleural catheter. 3. Increased size of a large confluent mediastinal and bilateral hilar mass, with adjacent moderate lymphadenopathy. 4. Trace right pleural effusion. 5. Moderate emphysema in the right lung. 6. Coronary atherosclerosis. D/ / 07/01/2017 11:36:11 Adriel Morley MD / betty Interpreting Provider: Adriel Morley MD (2) Pneumonia Current Visit: Yes Status: Acute Assessment and plan: pneumonia appears to be acute on chronic. Currently on vancomycin and cefepime at this time. We will continue antimicrobial therapy. Qualifiers: Pneumonia type: due to unspecified organism Laterality: left Lung location: unspecified part of lung Qualified Code(s): J18.9 - Pneumonia, unspecified organism (3) Sepsis Current Visit: Yes Status: Acute Assessment and plan: See above Qualifiers: Sepsis type: sepsis due to unspecified organism Qualified Code(s): A41.9 - Sepsis, unspecified organism (4) DVT prophylaxis Current Visit: No Status: Acute Assessment and plan: heparin 5000 units subcutaneous every 12hours (5) Elevated troponin Current Visit: Yes Status: Acute Assessment and plan: probably secondary to expansion of lung mass causing demand ischemia. No chest pain or pressure or tightness ecg reveals ventricular pacing will not conduct further work_up at this time as etiology is most likely related to his worsening lung mass - Subjective Interval history: 76-year-old male with lung cancer with Pleurx catheterpresented to the emergency department last night with worsening shortness of breath. Received fluids,vancomycin and cefepime. Patient states that the Pleurx catheter was not draining as well last night. Conversation was made at bedside with patient regarding CODE STATUS as he was full code. patient stated that he would not like to be intubated and tocall his regarding the matter. i spoke to his today and she stated that the patint has stated his wishes before that he would not want chest compressions, intubation. I explained to her the patient's worsening cancer on chest CT and chest x-ray. consulted pulmonology regarding the Pleurx catheter.they will come by and see patient today. - Constitutional Vitals: Temp Pulse Resp BP Pulse Ox 98.2 F 97 22 124/65 96 07/02/17 08:06 07/02/17 08:06 07/02/17 08:15 07/02/17 08:06 07/02/17 08:15 General appearance: Present: mild distress, A&O X 3, answers questions appropriately Exam: 76-year-old male who appears short of breath an in mild respiratory distress. - Head Head exam: Present: atraumatic - Respiratory Respiratory exam: Present: rales, respiratory distress - Cardiovascular Cardiovascular exam: Present: +S1, +S2 - GI/Abdominal GI/Abdominal exam: Absent: distended, firm, guarding - Extremities Exam Extremities exam: Absent: pedal edema - Neurological Exam Neurological exam: Present: oriented X3 - Skin Skin exam: Absent: petechiae Internal Medicine: Result - Labs CBC & Chem 7: 07/02/17 05:13 07/02/17 05:13 Labs: Short CBC 07/02/17 Range/Units 05:13 WBC 10.2 (4.3-11.1) K/mcL Hgb 9.2 L (12.9-16.9) g/dL Hct 31.7 L (37.5-50.1) % Plt Count 336 (140-400) K/mcL Neutrophils # 9.2 H (1.6-8.9) K/mcL BMP 07/02/17 05:13 Sodium 137 Potassium 3.3 L Chloride 105 Carbon Dioxide 25 BUN 29 H Creatinine 0.75 Glucose 152 H Calcium 7.9 L Cardiac Enzymes 07/01/17 07/02/17 Range/Units 21:15 05:13 Troponin I 0.06 H* 0.06 H* (< 0.04) ng/mL - ABG Interpretation Interpretation: ABG interpreted by me ABG results: ABG ABG pH 7.48 pH Units (7.32-7.45) H 07/01/17 12:48 ABG pCO2 32 mmHg (35-45) L 07/01/17 12:48 ABG pO2 77 mmHg (85-104) L 07/01/17 12:48 ABG O2 Saturation 96 % (95-98) 07/01/17 12:48 PT/INR, D-dimer PT 17.2 Seconds (9.4-12.1) H 07/01/17 09:07 Interpretation: respiratory alkalosis Consult Discharge Plan - Plan Referrals: Yael Perry MD [Primary Care Provider] - 07/11/17 9:00 am () <Kane Galdamez H - Last Filed: 07/02/17 15:54> Date of Encounter: 07/02/17 - Assessment and plan (1) Dyspnea and respiratory abnormalities Current Visit: Yes Status: Acute (2) Anxiety Current Visit: Yes Status: Acute - Constitutional Vitals: Temp Pulse Resp BP Pulse Ox 96.8 F L 102 30 95/68 92 07/02/17 11:51 07/02/17 11:51 07/02/17 11:51 07/02/17 11:51 07/02/17 11:51 Internal Medicine: Result - Labs CBC & Chem 7: 07/02/17 05:13 07/02/17 05:13 Labs: Short CBC 07/02/17 Range/Units 05:13 WBC 10.2 (4.3-11.1) K/mcL Hgb 9.2 L (12.9-16.9) g/dL Hct 31.7 L (37.5-50.1) % Plt Count 336 (140-400) K/mcL Neutrophils # 9.2 H (1.6-8.9) K/mcL BMP 07/02/17 05:13 Sodium 137 Potassium 3.3 L Chloride 105 Carbon Dioxide 25 BUN 29 H Creatinine 0.75 Glucose 152 H Calcium 7.9 L Cardiac Enzymes 07/01/17 07/02/17 Range/Units 21:15 05:13 Troponin I 0.06 H* 0.06 H* (< 0.04) ng/mL - ABG Interpretation ABG results: ABG ABG pH 7.51 pH Units (7.32-7.45) H 07/02/17 09:39 ABG pCO2 29 mmHg (35-45) L 07/02/17 09:39 ABG pO2 60 mmHg (85-104) L 07/02/17 09:39 ABG O2 Saturation 93 % (95-98) L 07/02/17 09:39 PT/INR, D-dimer PT 17.2 Seconds (9.4-12.1) H 07/01/17 09:07 - Attending Attestation acute hypoxic resp failure 2ry to malignant left pleural effusion/ hydropneumothorax, sepsis due to possible gram negative pneumonia, left plurex catheter not working CT showed: 1. In comparison to prior exams, there is now complete atelectasis and consolidation of the left lung. Fluid fills the left sided airways, beginning in the mainstem bronchus. 2. Small to moderate left-sided pleural effusion with a tunneled pleural catheter in place. A small amount of air is present layering anteriorly (hydropneumothorax), presumed related to the pleural catheter. 3. Increased size of a large confluent mediastinal and bilateral hilar mass, with adjacent moderate lymphadenopathy. 4. Trace right pleural effusion. 5. Moderate emphysema in the right lung. 6. Coronary atherosclerosis. severe respiratory distress, was given cefepime and vancomycin now is a DNR cc, pursuing full comfort measures, palliative care consulted I examined this patient and my medical decision-making was reviewed with the Resident Physician. I agree with the documented findings, disposition and treatment plan as described except to the extent set forth below.
[2017-07-02 09:46] LABS: ABG Base Excess 1 mEq/L (-2 to 3); ABG HCO3 23 mEq/L (21-27); ABG Oxygen Saturation 93 % (95-98); ABG PCO2 29 mmHg (35-45); ABG PH 7.51 pH Units (7.32-7.45); ABG PO2 60 mmHg (85-104); ABG TCO2 24 mEq/L (20-26)
[2017-07-02] MEDS: Furosemide 40 MG TABLET PO SCH (09:59)
[2017-07-02] MEDS: Aspirin 81 MG TAB.CHEW PO SCH (09:59)
[2017-07-02] MEDS: Fluconazole 100 MG TABLET PO SCH (10:07)
[2017-07-02] MEDS ORDERED: Dexmedetomidine HCl 400 MCG/100 ML MLS IVC ONE (10:39)
[2017-07-02] MEDS ORDERED: Dexmedetomidine HCl 400 MCG/100 ML MLS IVC SCH (10:45)
--- NOTE | 2017-07-02 10:56 | Pulmonology Consult Note ---
<Jt De Jesus M - Last Filed: 07/02/17 12:18> Date of Encounter: 07/02/17 Medications and Allergies Aspirin 81 mg PO DAILY 12/31/16 [History] Atorvastatin Calcium 80 mg PO DAILY 12/31/16 [History] Albuterol Sulfate [Albuterol Inhaler] 2 puff IH Q4H PRN 02/04/17 [History] Budesonide/Formoterol 160/4.5 [Symbicort 160/4.5] 2 puff IH BIDR 03/19/17 [ History] Megestrol Acetate [Megace] 800 mg PO DAILY #400 mls 05/29/17 [Rx] Docusate Sodium [Dok] 100 mg PO DAILY 07/01/17 [History] Fluconazole [Diflucan] 100 mg PO DAILY 07/01/17 [History] Furosemide [Lasix] 40 mg PO DAILY 07/01/17 [History] LORazepam [Ativan] 1 mg PO QID PRN 07/01/17 [History] Polyethylene Glycol 3350 [MiraLAX Powder Bulk 17.9 Oz] 1 scoop PO DAILY [History] predniSONE [Prednisone] 50 mg PO DAILY PRN 07/01/17 [History] 3 Allergy/AdvReac Type Severity Reaction Status Date / Time No Known Allergies Allergy Verified 04/30/17 08:12 All Systems: The remainder of the systems were reviewed and are negative Physical Examination Vital Signs: Vital Signs, Last 4 Hours Temp Pulse Resp BP Pulse Ox 07/02/17 11:51 96.8 F L 102 30 95/68 92 07/02/17 11:30 113 86/53 07/02/17 11:15 128 76/48 07/02/17 11:00 125 112/83 07/02/17 10:45 110 73/34 Results - Laboratory Findings CBC and BMP: 07/02/17 05:13 07/02/17 05:13 ABG ABG pH 7.51 pH Units (7.32-7.45) H 07/02/17 09:39 ABG pCO2 29 mmHg (35-45) L 07/02/17 09:39 ABG pO2 60 mmHg (85-104) L 07/02/17 09:39 ABG O2 Saturation 93 % (95-98) L 07/02/17 09:39 PT/INR, D-dimer PT 17.2 Seconds (9.4-12.1) H 07/01/17 09:07 Abnormal lab findings: Abnormal lab results RBC 3.78 M/mcL (4.19-5.50) L 07/02/17 05:13 Hgb 9.2 g/dL (12.9-16.9) L 07/02/17 05:13 Hct 31.7 % (37.5-50.1) L 07/02/17 05:13 MCH 24.3 pg (28.0-33.3) L 07/02/17 05:13 MCHC 29.0 g/dL (31.6-35.5) L 07/02/17 05:13 RDW 23.9 % (11.5-14.5) H 07/02/17 05:13 MPV 9.2 fL (9.4-12.4) L 07/02/17 05:13 Neutrophils # 9.2 K/mcL (1.6-8.9) H 07/02/17 05:13 Lymphocytes # 0.2 K/mcL (0.6-4.6) L 07/02/17 05:13 Polychromasia 2+ (Not Present) A 07/02/17 05:13 Hypochromasia Present (Not Present) A 07/02/17 05:13 Anisocytosis 2+ (Not Present) A 07/01/17 09:07 Microcytosis Present (Not Present) A 07/01/17 09:07 PT 17.2 Seconds (9.4-12.1) H 07/01/17 09:07 APTT 44.1 Seconds (26.0-36.0) H 07/01/17 09:07 ABG pH 7.51 pH Units (7.32-7.45) H 07/02/17 09:39 ABG pCO2 29 mmHg (35-45) L 07/02/17 09:39 ABG pO2 60 mmHg (85-104) L 07/02/17 09:39 ABG O2 Saturation 93 % (95-98) L 07/02/17 09:39 Potassium 3.3 mEq/L (3.5-5.1) L 07/02/17 05:13 BUN 29 mg/dL (8-23) H 07/02/17 05:13 BUN/Creatinine Ratio 39 (6-26) H 07/02/17 05:13 Glucose 152 mg/dL (70-105) H 07/02/17 05:13 Calcium 7.9 mg/dL (8.6-10.3) L 07/02/17 05:13 AST 41 Units/L (13-39) H 07/01/17 09:07 ALT 79 Units/L (7-52) H 07/01/17 09:07 Troponin I 0.06 ng/mL (< 0.04) H* 07/02/17 05:13 B-Natriuretic Peptide 172 pg/mL (Less than 100) H 07/01/17 09:07 Serum Total Protein 5.4 g/dL (6.4-8.9) L 07/01/17 09:07 Albumin 2.4 g/dL (3.5-5.7) L 07/01/17 09:07 Albumin/Globulin Ratio 0.8 (1.1-2.2) L 07/01/17 09:07 Urine Protein 30 mg/dL (Neg-Trace) H 07/01/17 12:14 Urine Microscopic RBC 3-5 per hpf (0-3) H 07/01/17 12:14 Urine Microscopic WBC 3-5 per hpf (0-3) H 07/01/17 12:14 Ur Squamous Epith Cells Many per lpf (None-Few) H 07/01/17 12:14 - Clinical Findings Intake & Output: Intake & Output 07/01/17 07/02/17 07/02/17 23:59 07:59 15:59 Intake Total 1000 / 1000 260 / 260 0 / 0 Output Total 100 / 100 Balance 1000 / 1000 160 / 160 0 / 0 Weight 57.1 kg Consult Discharge Plan - Plan Referrals: Yael Perry MD [Primary Care Provider] - 07/11/17 9:00 am () - Attending Attestation I examined this patient and my medical decision-making was reviewed with the Resident Physician. I agree with the documented findings, disposition and treatment plan as described except to the extent set forth below. Patient seen and examined. Labs, radiology, chart personally reviewed. 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 I have discussed with the patient and also at the bedside. Patient has been evaluated by Palliative Care as Well. Prognosis is poor and discussed with the primary team and thank you very much for consultation. <MakQuinn - Last Filed: 07/03/17 06:52> Date of Encounter: 07/03/17 Time of Encounter: 10:46 Assessment and Plan (1) Lung mass Current Visit: Yes Status: Acute Obstructive mediastinal lesion resulting in post-obstructive pneumonia, left lung collapse, pleural effusion, and shortness of air -- apparent airway collection may represent broncho-invasive disease -- has PleurX catheter in place which is apparently not draining as usual; consulted for evaluation and consideration of further interventions -- CT reviewed along with prior study (below) -- patient is not likely to benefit from bronchial stent -- recommend start on Precedex, BiPAP, and obtain palliative consult; communicated this to hospitalist team CT/CT chest wo con IMPRESSION: 1. In comparison to prior exams, there is now complete atelectasis and consolidation of the left lung. Fluid fills the left sided airways, beginning in the mainstem bronchus. 2. Small to moderate left-sided pleural effusion with a tunneled pleural catheter in place. A small amount of air is present layering anteriorly (hydropneumothorax), presumed related to the pleural catheter. 3. Increased size of a large confluent mediastinal and bilateral hilar mass, with adjacent moderate lymphadenopathy. (2) Hodgkins disease Current Visit: No Status: Acute Precipitant of above; all plans as above. Qualifiers: Hodgkin lymphoma type: unspecified type Lymphoma site: unspecified region Qualified Code(s): C81.90 - Hodgkin lymphoma, unspecified, unspecified site (3) Pneumonia Current Visit: Yes Status: Acute Hypotensive on arrival which has since stabilized; continue all associated plans per hospitalist orders. Qualifiers: Pneumonia type: due to unspecified organism Laterality: left Lung location: unspecified part of lung Qualified Code(s): J18.9 - Pneumonia, unspecified organism History of Present Illness Consult date: 07/02/17 Requesting physician: Timothy Huizar Reason for consult: dyspnea, pleural effusion, other (Lung Cancer) Chief complaint: Shortness of breath History of present illness: 76M with known history of lung cancer admitted with pneumonia, sepsis, worsening shortness of breath, and decreased PleurX catheter drainage. consult placed for evaluation in consideration of further options/interventions as well as assessment of PleurX catheter. CT demonstrated several interim changes including complete left lung collapse, enlarged tumor size, small-moderate left pleural effusion, and airway fluid accumulation. Patient is DNR-DNI and requests consideration of drainage of pleural fluid. Discussed with him intent to assess for adequate fluid accumulation for thoracentesis if needed. Chest CT 07/01/17 10:11 IMPRESSION: 1. In comparison to prior exams, there is now complete atelectasis and consolidation of the left lung. Fluid fills the left sided airways, beginning in the mainstem bronchus. 2. Small to moderate left-sided pleural effusion with a tunneled pleural catheter in place. A small amount of air is present layering anteriorly (hydropneumothorax), presumed related to the pleural catheter. 3. Increased size of a large confluent mediastinal and bilateral hilar mass, with adjacent moderate lymphadenopathy. 4. Trace right pleural effusion. 5. Moderate emphysema in the right lung. 6. Coronary atherosclerosis. D/ / 07/01/2017 11:36:11 Adriel Morley MD / betty Interpreting Provider: Adriel Morley MD Past Med Surg Social Fam HX - Past Medical History Attestation: Yes The following information was validated with the patient. Source: patient, old records reviewed Medical history: hypertension, myocardial infarction, other Psychiatric history: no psych history - Social History Smoking Status: Former smoker Smokeless Tobacco Status: No Alcohol use: none Drug use: none - Family History Brother Living Status: Hx Family Cancer: Yes Sister Family Member Ethnicity: Non- Living Status: Still Living Hx Family Cancer: Yes (unknown) Father Living Status: Hx Family Cancer: Yes Mother Hx Family Endocrine Disorder: Yes (DM) All Systems: The remainder of the systems were reviewed and are negative Physical Examination Vital Signs: Vital Signs, Last 4 Hours Temp Pulse Resp BP Pulse Ox 07/02/17 08:15 22 96 07/02/17 08:06 98.2 F 97 22 124/65 96 CONSTITUTIONAL: Alert, cachectic appearance, in clear respiratory distress HEAD: Normocephalic EYES: PER, no scleral icterus or conjunctival injection Oropharynx: moist RESP: coarse crackles heard throughout right lung mac worst at apex; left lung mac diminished/absent consistent with collapse evidence on CT CARD: Regular rhythm, borderline tachy, without murmurs, rubs, or gallop; rad pulses 2+ SKIN: no pallor/diaphoresis,mottling,jaundice,cyanosis EXT: no lateralizing edema or concerning skin change PSYCH: anxious affect Results - Laboratory Findings CBC and BMP: 07/02/17 05:13 07/02/17 05:13 ABG ABG pH 7.51 pH Units (7.32-7.45) H 07/02/17 09:39 ABG pCO2 29 mmHg (35-45) L 07/02/17 09:39 ABG pO2 60 mmHg (85-104) L 07/02/17 09:39 ABG O2 Saturation 93 % (95-98) L 07/02/17 09:39 PT/INR, D-dimer PT 17.2 Seconds (9.4-12.1) H 07/01/17 09:07 Abnormal lab findings: Abnormal lab results RBC 3.78 M/mcL (4.19-5.50) L 07/02/17 05:13 Hgb 9.2 g/dL (12.9-16.9) L 07/02/17 05:13 Hct 31.7 % (37.5-50.1) L 07/02/17 05:13 MCH 24.3 pg (28.0-33.3) L 07/02/17 05:13 MCHC 29.0 g/dL (31.6-35.5) L 07/02/17 05:13 RDW 23.9 % (11.5-14.5) H 07/02/17 05:13 MPV 9.2 fL (9.4-12.4) L 07/02/17 05:13 Neutrophils # 9.2 K/mcL (1.6-8.9) H 07/02/17 05:13 Lymphocytes # 0.2 K/mcL (0.6-4.6) L 07/02/17 05:13 Polychromasia 2+ (Not Present) A 07/02/17 05:13 Hypochromasia Present (Not Present) A 07/02/17 05:13 Anisocytosis 2+ (Not Present) A 07/01/17 09:07 Microcytosis Present (Not Present) A 07/01/17 09:07 PT 17.2 Seconds (9.4-12.1) H 07/01/17 09:07 APTT 44.1 Seconds (26.0-36.0) H 07/01/17 09:07 ABG pH 7.51 pH Units (7.32-7.45) H 07/02/17 09:39 ABG pCO2 29 mmHg (35-45) L 07/02/17 09:39 ABG pO2 60 mmHg (85-104) L 07/02/17 09:39 ABG O2 Saturation 93 % (95-98) L 07/02/17 09:39 Potassium 3.3 mEq/L (3.5-5.1) L 07/02/17 05:13 BUN 29 mg/dL (8-23) H 07/02/17 05:13 BUN/Creatinine Ratio 39 (6-26) H 07/02/17 05:13 Glucose 152 mg/dL (70-105) H 07/02/17 05:13 Calcium 7.9 mg/dL (8.6-10.3) L 07/02/17 05:13 AST 41 Units/L (13-39) H 07/01/17 09:07 ALT 79 Units/L (7-52) H 07/01/17 09:07 Troponin I 0.06 ng/mL (< 0.04) H* 07/02/17 05:13 B-Natriuretic Peptide 172 pg/mL (Less than 100) H 07/01/17 09:07 Serum Total Protein 5.4 g/dL (6.4-8.9) L 07/01/17 09:07 Albumin 2.4 g/dL (3.5-5.7) L 07/01/17 09:07 Albumin/Globulin Ratio 0.8 (1.1-2.2) L 07/01/17 09:07 Urine Protein 30 mg/dL (Neg-Trace) H 07/01/17 12:14 Urine Microscopic RBC 3-5 per hpf (0-3) H 07/01/17 12:14 Urine Microscopic WBC 3-5 per hpf (0-3) H 07/01/17 12:14 Ur Squamous Epith Cells Many per lpf (None-Few) H 07/01/17 12:14 - Diagnostic Findings CT scan - chest: report reviewed, image reviewed - Clinical Findings Intake & Output: Intake & Output 07/01/17 07/02/17 07/02/17 23:59 07:59 15:59 Intake Total 1000 / 1000 260 / 260 Output Total 100 / 100 Balance 1000 / 1000 160 / 160 Weight 57.1 kg
[2017-07-02] MEDS ORDERED: *HR* LORazepam 2 MG/ML VIAL IVP PRN (12:06)
[2017-07-02] MEDS ORDERED: MORPHINE SUL Oral CONC 10 MG/0.5 ML ORAL.SYG SL PRN (12:07)
[2017-07-02] MEDS ORDERED: Glycopyrrolate 0.2 MG/ML VIAL IVP ONE (13:40)
[2017-07-02] MEDS: *HR* LORazepam 2 MG/ML VIAL IVP PRN ×2 (13:46→18:42)
--- NOTE | 2017-07-02 14:12 | Palliative - Consult Note ---
Date of Encounter: 07/02/17 Time of Encounter: 14:00 - Assessment and Plan (1) Dyspnea and respiratory abnormalities Current Visit: Yes Status: Acute Assessment and plan: Patient has transitioned to comfort care. Will continue nebs/supportive oxygen. Add Roxanol for air hunger, monitor and titrate as needed. (2) Anxiety Current Visit: Yes Status: Acute Assessment and plan: Will transition to IV Lorazepam as he is very distressed and nursing reports that po Lorazepam was not helpful for him. Monitor (3) Congestion of upper airway Current Visit: Yes Status: Acute Assessment and plan: Will begin Scopolamine patch and Robinul IV and monitor. (4) Counseling regarding advanced directives and goals of care Current Visit: Yes Status: Acute Assessment and plan: D/W and pt. Patient was in a great deal of respiratory distress and did leave most of decision making to , Fernanda. She has spoken with Dr. De Jesus and Bhupendra and is aware of his worsening of condition and respiratory status. She states that at this point, she feels he has received good care, and wants nothing further for life prolonging interventions. Does not want pressors or any measures for resuscitation. Discussed that we can keep him more comfortable and help his anxiety, but those medications could also cause some respiratory depression. She states "At this point, he is miserable, and I only want him comfortable.". Discussed that at comfort care level, we will treat his symptoms, but would take him off monitor and not restrict medications based on his hemodynamic status. She agreed and signed a DNR-Comfort care state form had to leave as her brother drove her here - I did inform her that he may not survive long. She states that she understands and he is ready to pass when its his time. (5) Sepsis Current Visit: Yes Status: Acute Qualifiers: Sepsis type: sepsis due to unspecified organism Qualified Code(s): A41.9 - Sepsis, unspecified organism (6) Pneumonia Current Visit: Yes Status: Acute Qualifiers: Pneumonia type: due to unspecified organism Laterality: left Lung location: unspecified part of lung Qualified Code(s): J18.9 - Pneumonia, unspecified organism (7) Lung mass Current Visit: Yes Status: Acute Palliative-CN HPI - Data of Consult Consult date: 07/02/17 Requesting Physician: Kane Galdamez Primary Care Provider: Yael Perry, - Consult Narrative History of present illness: Mr. Maravilla is a 76 year old male who [facility]ness of breath. He has been treated with Iv antibiotics/ supportive oxygen. He is with known history of lung cancer admitted with pneumonia, sepsis, worsening shortness of breath, and decreased PleurX catheter drainage. Pulmonology consult was obtained - he is well known to Dr. De Jesus. CT demonstrated several interim changes including complete left lung collapse, enlarged tumor size, small-moderate left pleural effusion, and airway fluid accumulation. His condition deteriorated early this am and was notified by physician and came to hospital. Palliative care was consulted to assist with goals of care discussion as well as symptom management. Upon my arrival, he is in respiratory distress, tachypneic, restless and diaphoretic. Asking for help to be more comfortable. at bedside. CC: Kane Galdamez Past Med Surg Social Fam HX - Past Medical History Medical history: hypertension, myocardial infarction, other Psychiatric history: no psych history - Social History Smoking Status: Former smoker Smokeless Tobacco Status: No Alcohol use: none Drug use: none - Family History Brother Living Status: Hx Family Cancer: Yes Sister Family Member Ethnicity: Non- Living Status: Still Living Hx Family Cancer: Yes (unknown) Father Living Status: Hx Family Cancer: Yes Mother Hx Family Endocrine Disorder: Yes (DM) Medications and Allergies Aspirin 81 mg PO DAILY 12/31/16 [History] Atorvastatin Calcium 80 mg PO DAILY 12/31/16 [History] Albuterol Sulfate [Albuterol Inhaler] 2 puff IH Q4H PRN 02/04/17 [History] Budesonide/Formoterol 160/4.5 [Symbicort 160/4.5] 2 puff IH BIDR 03/19/17 [ History] Megestrol Acetate [Megace] 800 mg PO DAILY #400 mls 05/29/17 [Rx] Docusate Sodium [Dok] 100 mg PO DAILY 07/01/17 [History] Fluconazole [Diflucan] 100 mg PO DAILY 07/01/17 [History] Furosemide [Lasix] 40 mg PO DAILY 07/01/17 [History] LORazepam [Ativan] 1 mg PO QID PRN 07/01/17 [History] Polyethylene Glycol 3350 [MiraLAX Powder Bulk 17.9 Oz] 1 scoop PO DAILY [History] predniSONE [Prednisone] 50 mg PO DAILY PRN 07/01/17 [History] 3 Allergy/AdvReac Type Severity Reaction Status Date / Time No Known Allergies Allergy Verified 04/30/17 08:12 ROS unobtainable: other (Patient in severe distress, unable to answer ROS) Palliative Care-Exam - Constitutional Vitals: Temp Pulse Resp BP Pulse Ox 96.8 F L 102 30 95/68 92 07/02/17 11:51 07/02/17 11:51 07/02/17 11:51 07/02/17 11:51 07/02/17 11:51 General appearance: Present: mild distress - Head Head Exam: Present: normal inspection, normocephalic - Eye Eye exam: Present: normal appearance, PERRL - Respiratory Additional comments: Rhonchi throughout all lung mac. Currently on oxygen per nasal cannula - Cardiovascular Cardiovascular exam: Present: +S1, +S2, tachycardia - GI/Abdominal Exam GI/Abdominal exam: Present: diminished bowel sounds, soft - Extremities Exam Extremities exam: Present: normal capillary refill, normal inspection - Neurological Exam Neurological exam: Present: alert Additional comments: Oriented but Anxious and restless, can follow simple commands, BELTRAN - Skin Skin exam: Present: diaphoretic, pallor Internal Medicine - CN: Reslt - Labs CBC & Chem 7: 07/02/17 05:13 07/02/17 05:13 Labs: Short CBC 07/02/17 Range/Units 05:13 WBC 10.2 (4.3-11.1) K/mcL Hgb 9.2 L (12.9-16.9) g/dL Hct 31.7 L (37.5-50.1) % Plt Count 336 (140-400) K/mcL Neutrophils # 9.2 H (1.6-8.9) K/mcL BMP 07/02/17 05:13 Sodium 137 Potassium 3.3 L Chloride 105 Carbon Dioxide 25 BUN 29 H Creatinine 0.75 Glucose 152 H Calcium 7.9 L Cardiac Enzymes 07/01/17 07/02/17 Range/Units 21:15 05:13 Troponin I 0.06 H* 0.06 H* (< 0.04) ng/mL - ABG Interpretation ABG results: ABG ABG pH 7.51 pH Units (7.32-7.45) H 07/02/17 09:39 ABG pCO2 29 mmHg (35-45) L 07/02/17 09:39 ABG pO2 60 mmHg (85-104) L 07/02/17 09:39 ABG O2 Saturation 93 % (95-98) L 07/02/17 09:39 PT/INR, D-dimer PT 17.2 Seconds (9.4-12.1) H 07/01/17 09:07 Consult Discharge Plan - Plan Referrals: Yael Perry MD [Primary Care Provider] - 07/11/17 9:00 am () Palliative Quality Palliative Quality: Screen for Code Status: Yes, Screen for Goals of Care: Yes, Screen for Pain: Yes, If Pain Regimen Started, Initiate Bowel Regimen: NA, Screen for Nausea/Vomitting: Yes Code Status: 07/01/17 21:00 Resuscitation Status: Active [RES] Routine Comment: Resuscitation Status: Full Code 07/02/17 09:35 CODE [Resuscitation Status: Active] [RES] Routine Comment: Resuscitation Status: [id number] 07/02/17 12:07 DNR [Resuscitation Status: Active] [RES] Routine Comment: Resuscitation Status: DNR-Comfort Care
--- NOTE | 2017-07-02 15:36 | Event Note ---
Date of Encounter: 07/02/17 Time of Encounter: 12:00 Patient and his decided on DNR-Comfort Care due to his worsening condition and poor prognosis. Palliative care has evaluated the patient and they will assist in the transition of dicontinuation of aggressive medical therapy to comfort care.
[2017-07-02] MEDS ORDERED: Scopolamine Patch 1.5 MG PATCH.TD72 TD SCH (16:30)
[2017-07-02] MEDS: MORPHINE SUL Oral CONC 10 MG/0.5 ML ORAL.SYG SL PRN ×2 (17:28→21:24)
--- NOTE | 2017-07-02 18:06 | Oncology Inp Progress Note ---
Date of Encounter: 07/02/17 Time of Encounter: 12:00 (1) Hodgkins disease Current Visit: No Status: Acute Assessment and plan: With the diagnosis of Hodgkin's lymphoma, status post first cycle of chemotherapy 3 weeks ago with failure to thrive, shortness of breath due to recurrent pleural effusion, status post left Pleurx catheter placement, history of COPD on home oxygen with baseline shortness of breath, multiple episodes of prior pneumonia, restaging scans showing likely progressive disease. He was unable to tolerate full dose of chemotherapy and was dose reduced with first cycle with CHOP chemotherapy. We had a brief discussion yesterday in the clinic about oral patient's performance status, declining health poor oral intake weight loss shortness of breath that he will not be able to take further aggressive chemotherapy. Patient was hospitalized for further evaluation of acute condition and CT imaging shows worsening of disease process. Patient and family had agreed with palliative care measures only at this point. He will transition to palliative care/NH or hospice team for further care. Seen patient bedside and discussed in clinic with family on 07/01/17 Qualifiers: Hodgkin lymphoma type: unspecified type Lymphoma site: unspecified region Qualified Code(s): C81.90 - Hodgkin lymphoma, unspecified, unspecified site Oncology: Subj Interval history: Was sent from clinic yesterday due to hypotension, shortness of breath. Decreased Oral intake. Overnight events noted - Constitutional Vitals: Vital Signs Temp Pulse Resp BP Pulse Ox 07/02/17 11:51 96.8 F L 102 30 95/68 92 07/02/17 11:30 113 86/53 07/02/17 11:15 128 76/48 07/02/17 11:00 125 112/83 07/02/17 10:45 110 73/34 07/02/17 08:15 22 96 07/02/17 08:06 98.2 F 97 22 124/65 96 07/02/17 04:20 28 97 07/02/17 03:59 97.8 F 94 16 121/62 98 07/01/17 23:33 97.7 F 98 18 112/56 100 07/01/17 23:26 28 94 07/01/17 22:27 28 114/65 98 07/01/17 20:00 97 07/01/17 19:42 97.6 F 89 17 114/65 99 Intake and Output 07/02/17 07/02/17 07/02/17 07:59 15:59 23:59 Intake Total 260 / 260 0 / 0 Output Total 100 / 100 500 / 500 Balance 160 / 160 -500 / -500 Intake: IV Fluids 260 / 260 0 / 0 PRECEDEX Premix 400 mcg In 100 0 / 0 ml @ 0.2 MCG/KG/HR 2.855 mls/hr IVC .Q24H SARAH Rx#:[id number] Maxipime 1,000 MG In Water for 10 10 inj. (sterile) 10 ML @ 150 mls/ hr IVP Q8H SARAH Rx#:[id number] Vancocin 1,000 MG In 0.9 % 250 / 250 Sodium Chloride 250 ML @ 167 mls/hr IVPB Q12H SARAH Rx#: [id number] Output: Urine 100 / 100 Catheter 500 / 500 Wound Drainage 0 / 0 Left Anterior Chest 0 / 0 Other: # Voids 1 Weight 57.1 kg Patient Weight 07/02/17 23:59 Weight 57.1 kg General appearance: mild distress - Head Head exam: Present: atraumatic, normal inspection - Eye Eye exam: Present: sclera anicteric - Neck Neck exam: Present: full ROM - Respiratory Respiratory exam: Present: CTAB, wheezes - Cardiovascular Cardiovascular exam: Present: +S1, +S2 - GI/Abdominal GI/Abdominal exam: Present: normal bowel sounds, soft - Extremities Exam Extremities exam: Present: normal inspection - Neurological Exam Neurological exam: Present: alert, oriented X3 - Psychiatric Psychiatric exam: Present: normal affect Oncology: Obj Data - Labs CBC & Chem 7: 07/02/17 05:13 07/02/17 05:13 Labs: Laboratory Results - last 24 hr 07/01/17 07/02/17 07/02/17 21:15 05:13 05:13 WBC 10.2 RBC 3.78 L Hgb 9.2 L Hct 31.7 L MCV 83.9 MCH 24.3 L MCHC 29.0 L RDW 23.9 H Plt Count 336 MPV 9.2 L Immature Gran % 2.8 Seg Neutrophils % 90.5 Lymphocytes % 2.1 Monocytes % 4.2 Eosinophils % 0.3 Basophils % 0.1 Neutrophils # 9.2 H Lymphocytes # 0.2 L Monocytes # 0.4 Eosinophils # 0.0 Basophils # 0.0 Platelet Estimate Normal Polychromasia 2+ A Hypochromasia Present A ABG pH ABG pCO2 ABG pO2 ABG HCO3 ABG Total CO2 ABG O2 Saturation ABG Base Excess O2 Delivery Device Inspired O2 Sodium Potassium Chloride Carbon Dioxide BUN Creatinine Est GFR ( Amer) Est GFR (Non-Af Amer) BUN/Creatinine Ratio Glucose Calculated Osmolality Lactic Acid Calcium Magnesium Troponin I 0.06 H* 0.06 H* 07/02/17 07/02/17 07/02/17 05:13 05:13 09:39 WBC RBC Hgb Hct MCV MCH MCHC RDW Plt Count MPV Immature Gran % Seg Neutrophils % Lymphocytes % Monocytes % Eosinophils % Basophils % Neutrophils # Lymphocytes # Monocytes # Eosinophils # Basophils # Platelet Estimate Polychromasia Hypochromasia ABG pH 7.51 H ABG pCO2 29 L ABG pO2 60 L ABG HCO3 23 ABG Total CO2 24 ABG O2 Saturation 93 L ABG Base Excess 1 O2 Delivery Device Cannula Inspired O2 40.0 Sodium 137 Potassium 3.3 L Chloride 105 Carbon Dioxide 25 BUN 29 H Creatinine 0.75 Est GFR ( Amer) > 60 Est GFR (Non-Af Amer) > 60 BUN/Creatinine Ratio 39 H Glucose 152 H Calculated Osmolality 293 Lactic Acid 1.5 Calcium 7.9 L Magnesium 1.9 Troponin I - ABG Interpretation ABG results: ABG ABG pH 7.51 pH Units (7.32-7.45) H 07/02/17 09:39 ABG pCO2 29 mmHg (35-45) L 07/02/17 09:39 ABG pO2 60 mmHg (85-104) L 07/02/17 09:39 ABG O2 Saturation 93 % (95-98) L 07/02/17 09:39 PT/INR, D-dimer PT 17.2 Seconds (9.4-12.1) H 07/01/17 09:07 Consult Discharge Plan - Plan Referrals: Yael Perry MD [Primary Care Provider] - 07/11/17 9:00 am ()
[2017-07-03] MEDS: MORPHINE SUL Oral CONC 10 MG/0.5 ML ORAL.SYG SL PRN ×4 (01:31→10:44)
[2017-07-03] MEDS: *HR* LORazepam 2 MG/ML VIAL IVP PRN ×6 (03:10→15:59)
[2017-07-03] MEDS: Furosemide 40 MG TABLET PO SCH (07:39)
[2017-07-03] MEDS: Fluconazole 100 MG TABLET PO SCH (07:39)
[2017-07-03] MEDS: *HR* Heparin 5,000 UNIT/ML VIAL SQ SCH ×2 (07:39→16:35)
[2017-07-03] MEDS: Aspirin 81 MG TAB.CHEW PO SCH (07:39)
[2017-07-03] MEDS: Budesonide/Formoterol 160/4.5 MDI IH SCH (07:48)
[2017-07-03] MEDS ORDERED: Albuterol 2.5 MG/3 ML NEBULIZER IH PRN (08:51)
[2017-07-03] MEDS ORDERED: FentaNYL (PF) 1,000 MCG in 0.9 % Sodium Chloride 80 ML IVC SCH ×2 (09:15→13:24)
--- NOTE | 2017-07-03 09:59 | Pulmonology Progress Note ---
Date of Encounter: 07/03/17 Time of Encounter: 08:30 Assessment and Plan (1) Dyspnea and respiratory abnormalities Current Visit: Yes Status: Acute Patient with significant abnormality of his left lung with atelectasis and tumor involved as well as complicated pleural effusion which is most likely malignant in nature. Patient underwent palliative care/comfort care. Discussed with primary team regarding thoracentesis is most likely not going to change the outcome and I doubt there will be any significant relief his dyspnea. Will follow-up when necessary please call for any questions. Subjective Principal diagnosis: Shortness of breath Interval history: Patient is lethargic and sleepy Objective PUL Vital signs: Last Vital Signs Temp 97.7 F 07/03/17 04:28 Pulse 98 07/03/17 04:28 Resp 18 07/03/17 04:28 BP 88/60 07/03/17 04:28 Pulse Ox 95 07/03/17 04:28 General appearance: asleep Eyes: nonicteric Neck: supple Effort: mildly labored Auscultation: left: diminished breath sounds, rhonchi Percussion: left: dull, right: not dull Cardiovascular: regular rate and rhythm Gastrointestinal: normoactive bowel sounds Results - Laboratory Findings CBC and BMP: 07/02/17 05:13 07/02/17 05:13 ABG ABG pH 7.51 pH Units (7.32-7.45) H 07/02/17 09:39 ABG pCO2 29 mmHg (35-45) L 07/02/17 09:39 ABG pO2 60 mmHg (85-104) L 07/02/17 09:39 ABG O2 Saturation 93 % (95-98) L 07/02/17 09:39 PT/INR, D-dimer PT 17.2 Seconds (9.4-12.1) H 07/01/17 09:07 Abnormal lab findings: Abnormal lab results RBC 3.78 M/mcL (4.19-5.50) L 07/02/17 05:13 Hgb 9.2 g/dL (12.9-16.9) L 07/02/17 05:13 Hct 31.7 % (37.5-50.1) L 07/02/17 05:13 MCH 24.3 pg (28.0-33.3) L 07/02/17 05:13 MCHC 29.0 g/dL (31.6-35.5) L 07/02/17 05:13 RDW 23.9 % (11.5-14.5) H 07/02/17 05:13 MPV 9.2 fL (9.4-12.4) L 07/02/17 05:13 Neutrophils # 9.2 K/mcL (1.6-8.9) H 07/02/17 05:13 Lymphocytes # 0.2 K/mcL (0.6-4.6) L 07/02/17 05:13 Polychromasia 2+ (Not Present) A 07/02/17 05:13 Hypochromasia Present (Not Present) A 07/02/17 05:13 Anisocytosis 2+ (Not Present) A 07/01/17 09:07 Microcytosis Present (Not Present) A 07/01/17 09:07 PT 17.2 Seconds (9.4-12.1) H 07/01/17 09:07 APTT 44.1 Seconds (26.0-36.0) H 07/01/17 09:07 ABG pH 7.51 pH Units (7.32-7.45) H 07/02/17 09:39 ABG pCO2 29 mmHg (35-45) L 07/02/17 09:39 ABG pO2 60 mmHg (85-104) L 07/02/17 09:39 ABG O2 Saturation 93 % (95-98) L 07/02/17 09:39 Potassium 3.3 mEq/L (3.5-5.1) L 07/02/17 05:13 BUN 29 mg/dL (8-23) H 07/02/17 05:13 BUN/Creatinine Ratio 39 (6-26) H 07/02/17 05:13 Glucose 152 mg/dL (70-105) H 07/02/17 05:13 Calcium 7.9 mg/dL (8.6-10.3) L 07/02/17 05:13 AST 41 Units/L (13-39) H 07/01/17 09:07 ALT 79 Units/L (7-52) H 07/01/17 09:07 Troponin I 0.06 ng/mL (< 0.04) H* 07/02/17 05:13 B-Natriuretic Peptide 172 pg/mL (Less than 100) H 07/01/17 09:07 Serum Total Protein 5.4 g/dL (6.4-8.9) L 07/01/17 09:07 Albumin 2.4 g/dL (3.5-5.7) L 07/01/17 09:07 Albumin/Globulin Ratio 0.8 (1.1-2.2) L 07/01/17 09:07 Urine Protein 30 mg/dL (Neg-Trace) H 07/01/17 12:14 Urine Microscopic RBC 3-5 per hpf (0-3) H 07/01/17 12:14 Urine Microscopic WBC 3-5 per hpf (0-3) H 07/01/17 12:14 Ur Squamous Epith Cells Many per lpf (None-Few) H 07/01/17 12:14 - Clinical Findings Intake & Output: Intake & Output 07/02/17 07/03/17 07/03/17 23:59 07:59 15:59 Intake Total 0 / 0 0 / 0 Output Total 200 / 200 0 / 0 Balance -200 / -200 0 / 0 0 / 0 Weight 55.367 kg Consult Discharge Plan - Plan Referrals: Yael Perry MD [Primary Care Provider] - 07/11/17 9:00 am ()
--- NOTE | 2017-07-03 10:32 | Palliative Progress Note ---
Date of Encounter: 07/03/17 Time of Encounter: 08:55 - Assessment and plan (1) Dyspnea and respiratory abnormalities Current Visit: Yes Status: Acute Assessment and plan: Still with significant respiratory distress. D/W Dr. Sanchez - Hong ordered. D /W pharmacist Ashok - will add Fentanyl drip for dyspnea and titrate as needed. (2) Anxiety Current Visit: Yes Status: Acute Assessment and plan: Continue IV Lorazepam. Has utilized x 5 last 24 hours. (3) Congestion of upper airway Current Visit: Yes Status: Acute Assessment and plan: Continue Scopolamine patch / Robinul IV (4) Counseling regarding advanced directives and goals of care Current Visit: Yes Status: Acute Assessment and plan: Continues to do poorly. Called and updated this am. Continue to follow. (5) Sepsis Current Visit: Yes Status: Acute Qualifiers: Sepsis type: sepsis due to unspecified organism Qualified Code(s): A41.9 - Sepsis, unspecified organism (6) Pneumonia Current Visit: Yes Status: Acute Qualifiers: Pneumonia type: due to unspecified organism Laterality: left Lung location: unspecified part of lung Qualified Code(s): J18.9 - Pneumonia, unspecified organism (7) Lung mass Current Visit: Yes Status: Acute - Time Spent With Patient Total time spent is greater than 50% in coordination of care (as documented) at patient's floor/unit and/or counseling patient: - Subjective Interval history: Patient still with respiratory distress and audible rhonchi. Difficulty verbalizing because of his respiratory distress. No family present - Constitutional Vitals: Abnormal lab results RBC 3.78 M/mcL (4.19-5.50) L 07/02/17 05:13 Hgb 9.2 g/dL (12.9-16.9) L 07/02/17 05:13 Hct 31.7 % (37.5-50.1) L 07/02/17 05:13 MCH 24.3 pg (28.0-33.3) L 07/02/17 05:13 MCHC 29.0 g/dL (31.6-35.5) L 07/02/17 05:13 RDW 23.9 % (11.5-14.5) H 07/02/17 05:13 MPV 9.2 fL (9.4-12.4) L 07/02/17 05:13 Neutrophils # 9.2 K/mcL (1.6-8.9) H 07/02/17 05:13 Lymphocytes # 0.2 K/mcL (0.6-4.6) L 07/02/17 05:13 Polychromasia 2+ (Not Present) A 07/02/17 05:13 Hypochromasia Present (Not Present) A 07/02/17 05:13 Anisocytosis 2+ (Not Present) A 07/01/17 09:07 Microcytosis Present (Not Present) A 07/01/17 09:07 PT 17.2 Seconds (9.4-12.1) H 07/01/17 09:07 APTT 44.1 Seconds (26.0-36.0) H 07/01/17 09:07 ABG pH 7.51 pH Units (7.32-7.45) H 07/02/17 09:39 ABG pCO2 29 mmHg (35-45) L 07/02/17 09:39 ABG pO2 60 mmHg (85-104) L 07/02/17 09:39 ABG O2 Saturation 93 % (95-98) L 07/02/17 09:39 Potassium 3.3 mEq/L (3.5-5.1) L 07/02/17 05:13 BUN 29 mg/dL (8-23) H 07/02/17 05:13 BUN/Creatinine Ratio 39 (6-26) H 07/02/17 05:13 Glucose 152 mg/dL (70-105) H 07/02/17 05:13 Calcium 7.9 mg/dL (8.6-10.3) L 07/02/17 05:13 AST 41 Units/L (13-39) H 07/01/17 09:07 ALT 79 Units/L (7-52) H 07/01/17 09:07 Troponin I 0.06 ng/mL (< 0.04) H* 07/02/17 05:13 B-Natriuretic Peptide 172 pg/mL (Less than 100) H 07/01/17 09:07 Serum Total Protein 5.4 g/dL (6.4-8.9) L 07/01/17 09:07 Albumin 2.4 g/dL (3.5-5.7) L 07/01/17 09:07 Albumin/Globulin Ratio 0.8 (1.1-2.2) L 07/01/17 09:07 Urine Protein 30 mg/dL (Neg-Trace) H 07/01/17 12:14 Urine Microscopic RBC 3-5 per hpf (0-3) H 07/01/17 12:14 Urine Microscopic WBC 3-5 per hpf (0-3) H 07/01/17 12:14 Ur Squamous Epith Cells Many per lpf (None-Few) H 07/01/17 12:14 General appearance: Present: mild distress - Respiratory Additional comments: Rhonchi all lung mac - Cardiovascular Cardiovascular exam: Present: +S1, +S2, tachycardia - GI/Abdominal GI/Abdominal exam: Present: normal bowel sounds, soft - Extremities Exam Extremities exam: Present: normal capillary refill, normal inspection - Neurological Exam Neurological exam: Present: alert, oriented X3 - Skin Skin exam: Present: dry, pallor, warm Palliative Quality Palliative Quality: Screen for Code Status: Yes, Screen for Goals of Care: Yes, Screen for Pain: Yes, If Pain Regimen Started, Initiate Bowel Regimen: NA, Screen for Nausea/Vomitting: Yes Code Status: 07/01/17 21:00 Resuscitation Status: Active [RES] Routine Comment: Resuscitation Status: Full Code 07/02/17 09:35 CODE [Resuscitation Status: Active] [RES] Routine Comment: Resuscitation Status: [id number] 07/02/17 12:07 DNR [Resuscitation Status: Active] [RES] Routine Comment: Resuscitation Status: DNR-Comfort Care - Labs CBC & Chem 7: 07/02/17 05:13 07/02/17 05:13 - ABG Interpretation ABG results: ABG ABG pH 7.51 pH Units (7.32-7.45) H 07/02/17 09:39 ABG pCO2 29 mmHg (35-45) L 07/02/17 09:39 ABG pO2 60 mmHg (85-104) L 07/02/17 09:39 ABG O2 Saturation 93 % (95-98) L 07/02/17 09:39 PT/INR, D-dimer PT 17.2 Seconds (9.4-12.1) H 07/01/17 09:07 Consult Discharge Plan - Plan Referrals: Yael Perry MD [Primary Care Provider] - 07/11/17 9:00 am ()
--- NOTE | 2017-07-03 10:44 | Internal Med Progress Note ---
<Timothy Huizar - Last Filed: 07/03/17 11:12> Date of Encounter: 07/03/17 Time of Encounter: 10:40 - Assessment and plan (1) Lung mass Current Visit: Yes Status: Acute Assessment and plan: Patient CODE STATUS is now DNR comfort care. Patient is being followed by palliative care to help make him more comfortable. All aggressive measures have been stopped. Patient oxygen saturation is 91% on nasal cannula at 8 L. Heart rate remains elevated. Blood pressure remains labile. Fentanyl drip was initiated. Patient has scopolamine patches on board. We will begin Lasix administration 40 mg 3 times daily to help with secretions. Patient's clinical status continues to worsen. (2) Pneumonia Current Visit: Yes Status: Acute Assessment and plan: Acute on Chronic in nature. See above Qualifiers: Pneumonia type: due to unspecified organism Laterality: left Lung location: unspecified part of lung Qualified Code(s): J18.9 - Pneumonia, unspecified organism (3) Sepsis Current Visit: Yes Status: Acute Assessment and plan: See above Qualifiers: Sepsis type: sepsis due to unspecified organism Qualified Code(s): A41.9 - Sepsis, unspecified organism (4) DVT prophylaxis Current Visit: No Status: Acute Assessment and plan: See above (5) Elevated troponin Current Visit: Yes Status: Acute Assessment and plan: Due to demand as patient has had episodes of hypoxia with a large left lung mass. Both most likely contribute to the troponin. See above for plan - Subjective Interval history: 76-year-old male with Hodgkin's lymphoma of the lung which has significantly worsened after repeat chest CT from February of last year. Patient was placed on DNR comfort care yesterday. Patient appearing uncomfortable and anxious. Sitting up in bed made him more anxious. Bed was lowered and patient appeared to become more comfortable. Nurse was initiating fentanyl drip to help with comfort. Nurse states that patient seemed to improve slightly after administration of comfort medications. - Constitutional Vitals: Temp Pulse Resp BP Pulse Ox 97.7 F 98 22 88/60 91 07/03/17 04:28 07/03/17 04:28 07/03/17 07:49 07/03/17 04:28 07/03/17 07:49 General appearance: Present: cachectic, mild distress, answers questions appropriately - Head Head exam: Present: atraumatic - Respiratory Additional comments: Rales and rhonchi throughout. Sounding very wet - GI/Abdominal GI/Abdominal exam: Absent: distended, firm, guarding - Psychiatric Psychiatric exam: Present: agitated, anxious Internal Medicine: Result - Labs CBC & Chem 7: 07/02/17 05:13 07/02/17 05:13 - ABG Interpretation ABG results: ABG ABG pH 7.51 pH Units (7.32-7.45) H 07/02/17 09:39 ABG pCO2 29 mmHg (35-45) L 07/02/17 09:39 ABG pO2 60 mmHg (85-104) L 07/02/17 09:39 ABG O2 Saturation 93 % (95-98) L 07/02/17 09:39 PT/INR, D-dimer PT 17.2 Seconds (9.4-12.1) H 07/01/17 09:07 Consult Discharge Plan - Plan Referrals: Yael Perry MD [Primary Care Provider] - 07/11/17 9:00 am () <Kane Galdamez H - Last Filed: 07/03/17 12:37> Date of Encounter: 07/03/17 - Assessment and plan (1) Dyspnea and respiratory abnormalities Current Visit: Yes Status: Acute (2) Anxiety Current Visit: Yes Status: Acute - Constitutional Vitals: Temp Pulse Resp BP Pulse Ox 97.1 F L 98 11 170/84 96 07/03/17 11:15 07/03/17 04:28 07/03/17 11:20 07/03/17 11:15 07/03/17 11:20 Internal Medicine: Result - Labs CBC & Chem 7: 07/02/17 05:13 07/02/17 05:13 - ABG Interpretation ABG results: ABG ABG pH 7.51 pH Units (7.32-7.45) H 07/02/17 09:39 ABG pCO2 29 mmHg (35-45) L 07/02/17 09:39 ABG pO2 60 mmHg (85-104) L 07/02/17 09:39 ABG O2 Saturation 93 % (95-98) L 07/02/17 09:39 PT/INR, D-dimer PT 17.2 Seconds (9.4-12.1) H 07/01/17 09:07 - Attending Attestation acute hypoxic resp failure 2ry to malignant left pleural effusion/ hydropneumothorax, sepsis due to possible gram negative pneumonia, left plurex catheter not working CT showed: 1. In comparison to prior exams, there is now complete atelectasis and consolidation of the left lung. Fluid fills the left sided airways, beginning in the mainstem bronchus. 2. Small to moderate left-sided pleural effusion with a tunneled pleural catheter in place. A small amount of air is present layering anteriorly (hydropneumothorax), presumed related to the pleural catheter. 3. Increased size of a large confluent mediastinal and bilateral hilar mass, with adjacent moderate lymphadenopathy. 4. Trace right pleural effusion. 5. Moderate emphysema in the right lung. 6. Coronary atherosclerosis. severe respiratory distress, was given cefepime and vancomycin now is a DNR cc, pursuing full comfort measures, palliative care consulted I examined this patient and my medical decision-making was reviewed with the Resident Physician. I agree with the documented findings, disposition and treatment plan as described except to the extent set forth below.
[2017-07-03 11:19] VITALS: BP 170/84
[2017-07-03] MEDS: Furosemide 40 MG/4 ML VIAL IVP SCH ×2 (12:20→15:59)
[2017-07-03] MEDS ORDERED: *HR* FentaNYL (PF) 100 MCG/2 ML VIAL IVP PRN (13:23)
[2017-07-03] MEDS: 0.9 % Sodium Chloride 1,000 ML IVC SCH ×2 (15:45→15:46)
[2017-07-03] MEDS: Cefepime HCl 1,000 MG in Water for inj. (sterile) 20 ML 10 ML IVP SCH (15:46)
--- NOTE | 2017-07-03 17:56 | Death Note ---
<Coleman Rodrigues - Last Filed: 07/03/17 17:51> Discharge Sum: Summary - Date and Time Date of admission: 07/01/17 16:42 Date of : 07/03/17 Time of : 17:32 - Summary Details: Mr. Maravilla was a 76 year old gentleman who was referred to [facility] from his oncologist office due to the finding of hypotension. Patient had recently been diagnosed with Hodgkin's lymphoma and had started chemotherapy 3 weeks prior to presentation. Patient had struggled with multiple bouts of postobstructive pneumonia on account of his Hodgkin's lymphoma as well as recurrent pleural effusions for which he had a Pleurx catheter in place, though this had stopped draining prior to presentation. At the time of presentation patient was reporting worsening shortness of breath and productive cough. A CT examination performed showed complete atelectasis and consolidation of the left lung, increased size of the large confluent mediastinal and bilateral hilar mass, and fluid filling the left-sided airways. He was initially started on vancomycin and cefepime with consults placed for pulmonology, oncology, and palliative care. Patient was not a candidate for aggressive chemotherapy, nor was patient a candidate for a new Pleurx. Given the patient overall status and after much discussion with family, the care team , and palliative care the patient and his elected for comfort measures to be instituted. At this point, antibiotics discontinued and he was started on comfort medications and transferred out of the stepdown unit. The following day the patient respiratory status continued to deteriorate and patient ceased breathing, he was pronounced at 1732. He was seen and examined; no spontaneous respirations or present, no pulse was palpated, no heart sounds were auscultated, and his pupils were fixed, dilated, and unreactive to light. Patient's , brother, [id number], and friend were in attendance. - Additional Data Confirmation of as documented by pronouncing clinician: no pulse, no respirations, no heart sounds, pupils fixed and dilated Family: at bedside Additional persons at bedside: other (Nurse) Attending/PCP notified?: Yes Attending physician: Kane Galdamez Was code activated?: No Autopsy requested?: No voucher examiner notified?: No Organ bank notified?: Yes Advance directives: Yes Hospice patient?: No Discharge Sum: Diag - PCOD Probable Cause of : Respiratory arrest Discharge Sum: Prov - Provider Primary care physician: Yael Perry, Admitting clinician: Carmelo Champagne Attending physician on admission: Kane Galdamez Consults: 07/01/17 18:42 Consult to Nutrition [CONS] Routine Comment: Consulting Provider: NUTRITION Reason for Dietary Consult: MST Score Consult to Instructor Of Sociology [CONS] Routine Reason for SW Consult: d/c planning 07/01/17 21:07 Consult to Oncology Hematology [CONS] Routine Consulting Provider: [facility] [place] Reason for Consult: Lung cancer Call Completed: No Consult to Palliative Care [CONS] Routine Comment: Consulting Provider: Palliative [facility] Reason for Consult: Lung cancer, determine goal of care Call Completed: No 07/02/17 09:41 Consult to Pulmonology [CONS] Routine Consulting Provider: [facility] [place] Reason for Consult: SOB, Lung cancer, pleurix catheter Call Completed: Yes Pronouncing clinician: Coleman Rodrigues <Kane Galdamez - Last Filed: 07/04/17 11:59> Discharge Sum: Summary - Date and Time Date of admission: 07/01/17 16:42 - Additional Data Attending physician: Kane Galdamez Discharge Sum: Prov - Provider Primary care physician: Yael Perry, Consults: 07/01/17 18:42 Consult to Nutrition [CONS] Routine Comment: Consulting Provider: NUTRITION Reason for Dietary Consult: MST Score Consult to Instructor Of Sociology [CONS] Routine Reason for SW Consult: d/c planning 07/01/17 21:07 Consult to Oncology Hematology [CONS] Routine Consulting Provider: [facility] Reason for Consult: Lung cancer Call Completed: No Consult to Palliative Care [CONS] Routine Comment: Consulting Provider: [facility] [place] Reason for Consult: Lung cancer, determine goal of care Call Completed: No 07/02/17 09:41 Consult to Pulmonology [CONS] Routine Consulting Provider: [facility] [place] Reason for Consult: SOB, Lung cancer, pleurix catheter Call Completed: Yes - Attending Attestation acute hypoxic resp failure 2ry to malignant left pleural effusion/ hydropneumothorax, sepsis due to possible gram negative pneumonia, left plurex catheter not working, metastatic Hodgkin's lymphoma time of : 17h32 on 07/03/17 CT showed: 1. In comparison to prior exams, there is now complete atelectasis and consolidation of the left lung. Fluid fills the left sided airways, beginning in the mainstem bronchus. 2. Small to moderate left-sided pleural effusion with a tunneled pleural catheter in place. A small amount of air is present layering anteriorly (hydropneumothorax), presumed related to the pleural catheter. 3. Increased size of a large confluent mediastinal and bilateral hilar mass, with adjacent moderate lymphadenopathy. 4. Trace right pleural effusion. 5. Moderate emphysema in the right lung. 6. Coronary atherosclerosis. severe respiratory distress, was given cefepime and vancomycin now is a DNR cc, pursuing full comfort measures, palliative care consulted time spent: 40 min I examined this patient and my medical decision-making was reviewed with the Resident Physician. I agree with the documented findings, disposition and treatment plan as described except to the extent set forth below.
== END 2017-07-03 17:32 | disposition expired | DRG 871 ==
LOC: EMEROO 08:53 → 2NNU 16:42 → 2ANU 07-02 18:34
PROVIDERS: ADMIT Student in an Organized Health Care Education/Training Program; ATTEND Internal Medicine